=== PATIENT | female | born 1975 | race Caucasian/White ===

== ENCOUNTER → 2020-04-28 10:09 | Outpatient (CLI) | payer OTHER, SELFPAY ==
--- NOTE | ~2020-04-28 | XR_ITS ---
EXAMINATION: XR shoulder RT min 2V DATE: 04/28/2020 10:30 INDICATION: Right shoulder pain. TECHNIQUE: 5 views of right shoulder were obtained. COMPARISON: None. FINDINGS: Bone alignment is normal. No fracture. Joint spaces are well maintained. IMPRESSION: 1. Normal right shoulder. Reviewed, dictated and finalized at location A. NTIFIC DIRECTOR IMPRESSION: 1. Normal right shoulder.
== END ==
PROVIDERS: PCP Internal Medicine; Visit Provider Nurse Practitioner
DX: M25.511 Pain in right shoulder (principal)
CPT/HCPCS: 73030

== ENCOUNTER 2020-06-21 10:00 | Outpatient (RCR) | payer OTHER, SELFPAY ==
--- NOTE | 2020-05-08 17:03 | PTOPEVAL ---
PHYSICAL THERAPY EVALUATION Thank you for referring Jessika Dill to [facility].? Jessika was evaluated for the dx of right shoulder pain. The patient is scheduled to be seen for therapy? 2x/week for 4 weeks. Please review, sign, date and return this plan of care DOMI. I agree with and certify that the following plan of care is medically necessary. Referring Physician Date Attending Provider: Deborah Brownlee NP *PT Outpatient Evaluation Start: 05/08/20 15:36 Freq: Status: Active Protocol: Document 05/08/20 15:37 MLV (Rec: 05/08/20 16:48 MLV [id number]) Assessment Status Evaluation Evaluation Information Problem Diagnosis right shoulder pain Onset 2 months ago (and chronic) Cause no event related Additional Evaluation Detail The patient has had pain at the right shoulder for 10-15 years without any injury. The patient has had increased pain and now has trouble holding her daughter-the arm gives out due to pain. The patient is right hand dominant. The patient has trouble with reaching/driving/self care and sleeps 25% less due to the shoulder. 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 The patient has a 3 year old to care for. Diagnostic Tests X-Rays For This Problem Yes: normal Previous Treatments Previous Treatments For This Problem none since original pain started Pain Assessment Timing of Pain Assessment Timing of Pain Assessment Assessment Pain Scale Pain Scale Used Numeric (1 - 10) Self Report Pain Assessment Right Shoulder(s) Reported Pain Level 5 Pain Description Pressure,Sharp,Tender on Palpation Pain Frequency Chronic Other Pain Description 8 with reach/lift/ADL's Greatest Pain Intensity 10 Pain Aggravating Factors Exercise/Activity,Lifting Pain Score Pain Score 5: Self Report Interventions Used Interventions Used By Clinicians Education Pain Relief Interventions Used By Heat,Ice,Inactivity/Rest, Patient Medication,Position Change Other Alleviating Interventions tylenol frequently Cervical and Lumbar ROM Cervical ROM Reason Not Measured WFL/Left,WFL/Right Cervical Lateral Flexion Left (0-50) 25 Query Text:Act
--- NOTE | 2020-06-07 10:46 | PTOPEVAL ---
PHYSICAL THERAPY RE-EVALUATION Thank you for referring Jessika Dill to [facility].? The patient improving with goals partially met. The patient will benefit from further PT and is scheduled to be seen for therapy? 2 x/week for 2 weeks. Please review, sign, date and return this plan of care DOMI. I agree with and certify that the following plan of care is medically necessary. Referring Physician Date Attending Provider: Deborah Brownlee NP Referring Provider: Deborah Brownlee NP *PT Outpatient Evaluation Start: 05/08/20 15:36 Freq: Status: Active Protocol: Document 06/07/20 10:01 [facility] (Rec: 06/07/20 10:43 [facility] [id number]) Assessment Status Re-evaluation Evaluation Information Problem Diagnosis right shoulder pain Onset 2 months ago (and chronic) Cause no event related Additional Evaluation Detail Patient feels she is about 25% better than at eval with having occasional days with high pain still. The pain is still at the upper traps. The patient is doing her exercises daily and using heat regularly. The patient requires tylenol or ibuprofen about every other day. Patient feels more therapy will help get her pain down further. Pain Assessment Timing of Pain Assessment Timing of Pain Assessment Assessment Pain Scale Pain Scale Used Numeric (1 - 10) Self Report Pain Assessment Right Shoulder(s) Reported Pain Level 4 Pain Description Aching,Tightness Pain Score Pain Score 4: Self Report Interventions Used Interventions Used By Clinicians Electrical Stimulation, Exercise,Heat,Manual Therapy Techniques Pain Relief Interventions Used By Exercise,Heat,Medication Patient Cervical and Lumbar ROM Cervical ROM Reason Not Measured WFL/Left,WFL/Right Cervical Lateral Flexion Left (0-50) 25 Query Text:Active in Degrees Cervical Lateral Flexion Left (0-50) 35 Query Text:Passive in Degrees Upper Extremity Range of Motion General Upper Extremity Range of Motion Gross Upper Extremity Range of Motion shoulder active motion: right Comments flexion 135, abduction 156 degrees (improved but patient requires extensive encouragement to use arm actively) Palpation Assessment Palpation Palpation 5
--- NOTE | 2020-06-21 10:51 | PTOPEVAL ---
PHYSICAL THERAPY DISCHARGE Thank you for referring Jessika Dill to [facility].? The patient has been seen for therapy? 13 visits and goals are partially met/skilled PT no longer needed. DC PT. Please review, sign, date and return this plan of care. I agree with and certify the following plan of care. Referring Physician Date Referring Provider: Deborah Brownlee NP *PT Outpatient Discharge Start: 05/08/20 15:36 Freq: Status: Active Protocol: Document 06/21/20 10:07 [facility] (Rec: 06/21/20 10:50 [facility] [id number]) Therapy Assessment Status Assessment Status Discharge Evaluation Information Problem Diagnosis right shoulder pain Onset 2 months ago (and chronic) Cause no event related Additional Evaluation Detail The patient feels a lot better since eval with improved motion and decreased severity of pain. The pt has no trouble with her HEP and can continue along with heat. Patient plans to follow up with MD regarding remaining symptoms assessment. Pain Assessment Timing of Pain Assessment Timing of Pain Assessment Assessment Pain Scale Pain Scale Used Numeric (1 - 10) Self Report Pain Assessment Right Shoulder(s) Reported Pain Level 2 Pain Description Soreness,Tightness Pain Frequency Acute Pain Aggravating Factors Exercise/Activity,Lifting Pain Behaviors None Pain Score Pain Score 2: Self Report Interventions Used Interventions Used By Clinicians Education,Electrical Stimulation,Heat,Manual Therapy Techniques Pain Relief Interventions Used By Exercise,Heat,Inactivity/Rest Patient Cervical and Lumbar ROM Cervical ROM Cervical Lateral Flexion Right (0-50) 35 Query Text:Active in Degrees Cervical Lateral Flexion Left (0-50) 20 Query Text:Active in Degrees Upper Extremity Range of Motion General Upper Extremity Range of Motion Gross Upper Extremity Range of Motion right shoulder flexion active Comments 145 with stiffness; abduction 150 degrees with tingling at endrange Upper Extremity Muscle Strength Testing General Upper Extremity Strength Reason Not Measured WNL/Left,WNL/Right Palpation Assessment Palpation Palpation 70% decrease in spasms/ tightness at logan. upper traps and levator scap muscles. No
== END 2020-06-21 11:58 | disposition home or self-care (01) ==
LOC: ANHPT 10:00
PROVIDERS: PCP Internal Medicine; Referring Provider Nurse Practitioner; Visit Provider Nurse Practitioner
DX: M25.511 Pain in right shoulder (principal)
CPT/HCPCS: 97014; 97110; 97140; 97161; G0283

== ENCOUNTER → 2020-07-11 08:25 | Outpatient (CLI) | payer OTHER, SELFPAY ==
--- NOTE | ~2020-07-11 | MR_ITS ---
EXAMINATION: MR cervical spine wo con EXAM DATE: 07/11/2020 09:29 INDICATION: Neck pain, bilateral shoulder pain right side worse, cervicalgia. TECHNIQUE: Multi-sequential, multiplanar MR images of the cervical spine were obtained without contra st. Axial T2, axial T2 MERGE sequence. Sagittal T1, T2, T2 fat saturation images also obtained. Th ere is no prior study for comparison. FINDINGS: There is mild reversal of the normal cervical lordosis which may be positional or spasm. T here is mild to moderate loss of the C5-6 disc height, mild at C6-7. The vertebral body and disc heig hts are otherwise well maintained. There is 2 mm anterolisthesis C2 on C3. The vertebral bodies are o therwise aligned. The spinal cord signal intensity and intrinsic morphology is normal. Cervicomedulla ry junction is normal in appearance. There are no suspicious marrow signal abnormalities. Paraspinal soft tissue is unremarkable. Level by level evaluation: C2-C3: Disc does not extend beyond the endplate margin. Uncovertebral joint arthropathy: None. Facet joint arthropathy: Mild bilateral. Neural foraminal stenosis: No stenosis. Central canal stenosis: No stenosis. C3-C4: Disc does not extend beyond the endplate margin. Uncovertebral joint arthropathy: Mild left. Facet joint arthropathy: Mild bilateral. Neural foraminal stenosis: No stenosis. Central canal stenosis: No stenosis. C4-C5: Disc does not extend beyond the endplate margin. Uncovertebral joint arthropathy: Mild left. Facet joint arthropathy: Mild bilateral. Neural foraminal stenosis: No stenosis. Central canal stenosis: No stenosis. C5-C6: There is a minimal diffuse disc bulge. Uncovertebral joint arthropathy: Mild to moderate bilateral. Facet joint arthropathy: Mild bilateral. Neural foraminal stenosis: Mild bilateral. Central canal stenosis: No stenosis. C6-C7: There is a minimal diffuse disc bulge. Uncovertebral joint arthropathy: Mild to moderate left, mild right. Facet joint arthropathy: Mild bilateral. Neural foraminal stenosis: No stenosis. Central canal stenosis: No stenosis. C7-T1: Disc does not extend beyond the endplate margin. Uncovertebral joint arthropathy: None. Facet joint arthropathy: None. Neural foraminal stenosis: No stenosis. Central canal stenosis: No stenosis. IMPRESSION: 1. C5-6 mild to moderate disc disease and uncovertebral joint arthropathy. 2. Otherwise mild cervical spondylosis. Reviewed, dictated and finalized at location A.
== END ==
PROVIDERS: PCP Internal Medicine; Visit Provider Nurse Practitioner
DX: M50.30 Other cervical disc degeneration, unspecified cervical region (principal); M47.892 Other spondylosis, cervical region
CPT/HCPCS: 72141

== ENCOUNTER 2021-09-07 12:45 | Emergency (ER) | payer OTHER, SELFPAY ==
--- NOTE | ~2021-09-07 | XR_ITS ---
EXAMINATION: XR lumbar spine 2-3V DATE: 09/07/2021 13:17 INDICATION: Low back pain. TECHNIQUE: 3 views of lumbar spine were obtained. COMPARISON: None. FINDINGS: There is 3 degrees levocurvature of lumbar spine. Vertebral body heights and intervertebral disc heights are normal. The facet joints are unremarkable. IMPRESSION: 1. No etiology for the patient's symptoms. Reviewed, dictated and finalized at location A.
[2021-09-07 12:50] VITALS: BP 112/82; PULSE 93; RESP 16; TEMP 36.1; O2SAT 100
--- NOTE | 2021-09-07 12:56 | ED.GENADULT ---
HPI - General Adult General Chief complaint: Dizziness Stated complaint: VERTIGO/LOWER BACK PAIN Time Seen by Provider: 09/07/21 12:56 Source: patient, RN notes reviewed and old records reviewed Mode of arrival: ambulatory Limitations: no limitations History of Present Illness HPI narrative: 46-year-old female who presents to [facility] with intermittent vertigo since Friday. Patient reports that she had a Migraine on Friday, she also reports some fluid feeling in her right ear and also some sinus drainage. Patient reports that on she started having some lower back pain with no recent injury . Patient reports that she did fall down steps about a year ago and she did have some injections done in her upper back. Patient admits that she does not drink fluids well with urine dip showing Ketones 1+ in urine and specific gravity 1.025. Related Data Home Medications Medication Instructions Recorded Confirmed [id number]-[id number]-minerals tablet PO DAILY 04/28/20 (Multiple Vitamin, Womens tablet) Allergies Allergy/AdvReac Type Severity Reaction Status Date / Time Sulfa (Sulfonamide Allergy Mild Rash Unverified 12/26/20 08:56 Antibiotics) Cephalosporins Allergy Unknown Rash Unverified 12/26/20 08:56 codeine Allergy Unknown NAUSEA Unverified 12/26/20 08:56 Penicillins Allergy Unknown HIVES Unverified 12/26/20 08:56 prochlorperazine Allergy Unknown SHAKES/TREM Unverified 12/26/20 08:56 ORS Review of Systems Review of Systems: CONSTITUTIONAL: Denies fever, chills, or sweats. EYES: Denies visual changes, redness, or discharge. ENT: Positive for rhinorrhea,no congestion, sore throat, pressure feelings right ear otalgia. CARDIOVASCULAR: Denies chest pain, palpitations, or edema. RESPIRATORY: Denies cough or dyspnea. GASTROINTESTINAL: Denies abdominal pain, nausea, vomiting, or diarrhea. GENITOURINARY: Denies dysuria or hematuria. SKIN: Denies rash or itching. MUSCULOSKELETAL: Positive for lower back pain, joint pain, or myalgia. NEUROLOGIC: Denies headache, numbness, or weakness, states intermittent vertigo PSYCHIATRIC: Denies anxiety or depression. [facility] Past Medical History Medical History (Updated 09/08/21 @ 17:44 by Ana Luisa Archer NP) Allergies Broken finger Fibromyalgia Fractured rib Headache Migraines Shoulder pain Tinnitus Surgical History Surgical History H/O section 2009, 2011, 2017 H/O tubal ligation 2017 History of appendectomy 1984 Family History Family History Father Family history of diabetes mellitus in first degree relative, Onset Age: 64 Patient's father is Pancreatic cancer Grandparent Acute myocardial infarction Heart failure Cirrhosis Social History Social History (Updated 09/08/21 @ 17:45 by Ana Luisa Archer NP) Smoking status: Never smoker Second hand tobacco smoke exposure: No Smoking end date: 03/31/94 Alcohol intake: current Substance use type: does not use Living arrangements: with family Gender identity (if verbalized by the patient): Female Comments At time of signature, agree with nursing past medical, surgical, social and family history. There is no relevant family history pertinent to the presenting complaint Exam Narrative: GENERAL: Well-appearing, well-nourished, and in no acute distress. HEAD: Normocephalic, atraumatic. EYES: PERRLA and EOMI. ENT: Nares with minimal redness, clear rhinorrhea no epistaxis. Mucous membranes moist.TM;s normal with good light reflex, throat pink with no lesions or exudates,no tonsil swelling NECK: Supple. no lymphadenopathy CHEST: Clear to auscultation. No respiratory distress.SAO2 100% on room air. HEART: Regular rate and rhythm. No murmur heard. Normal peripheral pulses. ABDOMEN: Soft, nontender, nondistended, normal active bowel sounds. EXTREMIT
== END 2021-09-07 13:44 | disposition home or self-care (01) ==
PROVIDERS: Emergency Provider Registered Nurse; PCP Internal Medicine
DX: M54.50 Low back pain, unspecified (principal); R42 Dizziness and giddiness; M79.7 Fibromyalgia
CPT/HCPCS: 72100; 81003; 99213; G0463

== ENCOUNTER → 2022-12-10 16:25 | Outpatient (CLI) | payer OTHER, SELFPAY ==
--- NOTE | ~2022-12-10 | XR_ITS ---
EXAMINATION: XR chest 2V 12/10/2022 16:36 INDICATION: Shortness of breath PROCEDURE: 2 view chest COMPARISON: No prior studies for comparison. FINDINGS: The lungs are clear. The cardiomediastinal silhouette is within normal limits. There are no pleural effusions. There is no pneumothorax suspected. IMPRESSION: 1: NO ACUTE CARDIOPULMONARY DISEASE. Reviewed, dictated and finalized at location L.
== END ==
PROVIDERS: PCP Clinical Nurse Specialist; Visit Provider Clinical Nurse Specialist
DX: R06.02 Shortness of breath (principal)
CPT/HCPCS: 71046

== ENCOUNTER 2022-12-29 12:36 | Emergency (ER) | payer OTHER, SELFPAY ==
--- NOTE | ~2022-12-29 | XR_ITS ---
EXAMINATION: [id number] INDICATION: Right chest pain TECHNIQUE: A frontal view of the chest and two views of the right ribs were obtained. COMPARISON: None. FINDINGS: The lungs are free of acute opacities. No pleural effusion or pneumothorax. The cardiomedia stinal silhouette is normal. The visualized bones and soft tissues are unremarkable. No displaced rib fracture is identified. IMPRESSION: 1. No acute cardiopulmonary abnormality or evidence of displaced rib fracture. Reviewed, dictated and finalized at location A.
[2022-12-29 12:42] VITALS: BP 118/74; PULSE 102; RESP 16; TEMP 36.7; O2SAT 100
--- NOTE | 2022-12-29 12:51 | ED.URI ---
HPI - URI/Sore Throat General Chief Complaint: Upper Respiratory Infection Stated Complaint: Bronchitis;Rib pain Time Seen by Provider: 12/29/22 12:51 Source: patient and RN notes reviewed Mode of arrival: ambulatory Limitations: no limitations History of Present Illness HPI Narrative: 47-year-old female presents with concern for rib pain. She reports 1 month history of cough with bronchitis. Reports she has completed a round of doxycycline, Medrol Dosepak, has been using an inhaler and Tessalon Perles. She reports symptoms had improved slightly but she still has a very persistent cough. She reports pain under the right shoulder blade that wraps around the right rib cage under the breast. She reports pain is worsened with deep breathing and coughing. She denies rash, bruising MD elicited complaint: cough Related Data Home Medications Medication Instructions Recorded Confirmed [id number]-Rc-vmcd-minerals 1 tablet PO DAILY 04/28/20 12/29/22 (Multiple Vitamin, Womens tablet) Allergies Allergy/AdvReac Type Severity Reaction Status Date / Time Sulfa (Sulfonamide Allergy Mild Rash Unverified 12/29/22 12:39 Antibiotics) Cephalosporins Allergy Unknown Rash Unverified 12/29/22 12:39 codeine Allergy Unknown NAUSEA Unverified 12/29/22 12:39 Penicillins Allergy Unknown HIVES Unverified 12/29/22 12:39 prochlorperazine Allergy Unknown SHAKES/TREM Unverified 12/29/22 12:39 ORS Review of Systems Review of Systems: CONSTITUTIONAL: Denies malaise, chills, sweats, or fever. EYES: Denies visual changes, redness, or discharge. ENT: Denies rhinorrhea, congestion, sinus pain, otalgia and sore throat. CARDIOVASCULAR: Denies chest pain, palpitations, or edema. RESPIRATORY: Reports cough. Denies dyspnea. GASTROINTESTINAL: Denies abdominal pain, nausea, vomiting, diarrhea SKIN: Denies rash or itching. MUSCULOSKELETAL: Reports right rib pain NEUROLOGIC: Denies headache. All systems reviewed & are unremarkable except as noted in HPI and below PMFSH Past Medical History Medical History Allergies Broken finger Fibromyalgia Fractured rib Headache Migraines Shoulder pain Tinnitus Surgical History Surgical History H/O section 2008, 2012, 2017 H/O tubal ligation 2017 History of appendectomy 1984 Family History Family History Father Family history of diabetes mellitus in first degree relative, Onset Age: 64 Patient's father is Pancreatic cancer Grandparent Acute myocardial infarction Heart failure Cirrhosis Social History Social History (Updated 12/04/22 @ 14:00 by Miles Espino MA) Smoking status: Former smoker Second hand tobacco smoke exposure: No Smoking end date: 03/31/94 Alcohol intake: current Substance use type: does not use Lack of Transportation: No Lack of Food: Never True Current Housing: I Have Housing Concerned About Future Housing: No Difficulty Paying Gas/Electric Bills: No Difficulty Paying for Meds: No Currently Unemployed: No Education: Bachelor's Degree Difficulty w/ Childcare or Family Care: No Living arrangements: with family Gender identity (if verbalized by the patient): Female Comments At time of signature, agree with nursing past medical, surgical, social and family history. There is no relevant family history pertinent to the presenting complaint Exam Narrative: GENERAL: Well-appearing, well-nourished, and in no acute distress. HEAD: Normocephalic EYES: PERRLA, conjunctivae clear ENT: Nares clear. Mucous membranes moist. TM pearly cheng with dull light reflex bilaterally; no tragal tenderness. NECK: Supple. No lymphadenopathy CHEST: Clear to auscultation, breath sounds equal. No wheezing, rhonchi, rales, or stridor.
[2022-12-29 13:06] VITALS: BP 118/74; PULSE 102; RESP 16; TEMP 36.7; O2SAT 100
== END 2022-12-29 13:31 | disposition home or self-care (01) ==
PROVIDERS: Emergency Provider Nurse Practitioner; PCP Clinical Nurse Specialist
DX: R05.9 Cough, unspecified (principal); R07.81 Pleurodynia; Z87.891 Personal history of nicotine dependence
CPT/HCPCS: 71101; 99213; G0463

== ENCOUNTER 2023-11-25 14:49 | Outpatient (CLI) | payer OTHER, SELFPAY ==
[2023-11-25 18:51] LABS: Basophils Absolute Auto 0.1 K/mm3 (0.0-0.1); Basophils Percent Auto 0.5 % (0.2-1.2); Eosinophils Absolute Auto 0.1 K/mm3 (0-0.3); Eosinophils Percent Auto 0.9 % (0-4.4); Hematocrit 40.7 % (37.0-47.0); Hemoglobin 13.2 g/dL (12.0-15.0); Immature Granulocyte Absolute 0.02 K/mm3 (0.00-0.031); Immature Granulocyte Percent A 0.2 % (0-0.5); Lymphocytes Absolute Auto 3.78 K/mm3 (0.9-3.2); Lymphocytes Percent Auto 39.6 % (18.3-44.2); Mean Corpuscular HGB Conc 32.4 g/dl (32-36); Mean Corpuscular Hemoglobin 28.8 pg (26-34); Mean Corpuscular Volume 88.7 fl (80-100); Mean Platelet Volume 10.6 fl (7.4-10.4); Monocytes Absolute Auto 0.7 K/mm3 (0.1-0.6); Monocytes Percent Auto 7.2 % (2.6-8.5); Neutrophils Absolute Auto 4.9 K/mm3 (1.3-6.7); Neutrophils Percent Auto 51.6 % (45.5-73.1); Platelet Count Result 339 k/mm3 (150-375); Red Blood Count 4.59 M/mm3 (4.2-5.4); White Blood Count 9.5 K/mm3 (4.5-10.0)
[2023-11-25 19:38] LABS: Alanine Aminotransferase 12 U/L (6-35); Albumin Level 4.2 g/dL (3.5-5.1); Alkaline Phosphatase 58 U/L (38-126); Anion Gap 9 mmol/L (4-12); Aspartate Amino Transferase 40 U/L (14-36); Bilirubin,Total 0.2 mg/dL (0.2-1.3); Blood Urea Nitrogen 10 mg/dL (7-17); Calcium 8.8 mg/dL (8.4-10.2); Carbon Dioxide 29 mmol/L (22-30); Chloride 102 mmol/L (98-107); Estimated Glomerular Filt Rate > 60; Glucose 104 mg/dL (65-110); Potassium 3.5 mmol/L (3.4-5.0); Sodium 140 mmol/L (137-145)
== END 2023-11-25 14:50 | disposition home or self-care (01) ==
LOC: ANHGOSHLAB 14:50
PROVIDERS: PCP Nurse Practitioner; Visit Provider Nurse Practitioner
DX: Z13.29 Encounter for screening for other suspected endocrine disorder (principal); R53.83 Other fatigue
CPT/HCPCS: 36415; 80053; 84443; 85025

== ENCOUNTER 2024-02-17 09:25 | Outpatient (CLI) | payer OTHER, SELFPAY ==
[2024-03-08 12:09] VITALS: BMI 26.4
--- NOTE | 2024-03-08 12:09 | WPDHOMESLEEP ---
Sleep Study - Home Unattended Date of Study: 02/17/24 Ordering Provider: Deborah Brownlee NP Interpreting Provider: Perla Dukes, DO Home Sleep Study Type: Watch PAT Height: 1.52 m Weight: 61.235 kg Body Mass Index: 26.4 Neck Circumference (inches): 13 [place]: 14 Reason for Sleep Study Excessive daytime sleepiness Sleep History The patient is a 48-year-old female that had a sleep study ordered by her primary care for evaluation of sleep apnea. The patient denies awakening from sleep short of breath. She rarely awakens at night with heartburn, belching or cough. She rarely snores and is never loud enough that others complain. She rarely has trouble sleeping when she has a cold. She denies waking up gasping for air throughout the night. She denies having breathing problems at night observed by herself or others. She denies sweating excessively at night. She rarely has heart palpitations or irregular heartbeats during the night. She occasionally falls asleep during the day but never while driving. She rarely experiences loss of muscle tone when extremely emotional. She occasionally has trouble at school or work due to sleepiness. She rarely feels unable to move while waking up or falling asleep. She rarely experiences vivid dreamlike scenes upon awakening or falling asleep. She rarely feels afraid of going to sleep. She occasionally has nightmares and occasionally remembers her dreams. She constantly has thoughts racing through her mind. She rarely feels sad, depressed or anxious. She frequently has muscular tension. She occasionally notices parts of her body jerk. She frequently kicks during the night. She occasionally has crawling and aching feelings in her legs and occasionally has leg pain during the night. She rarely grinds her teeth during sleep and rarely awakens with morning jaw pain. She is constantly bothered by pain during the day and occasionally awakened by pain during the night. She constantly wakes up feeling stiff in the morning. She constantly wakes up with sore or achy muscles. She constantly wakes up with pain in the neck, spine and other joints. She goes to bed at 10:00 p.m. on weekdays and between 10-11 p.m. on the weekends. It takes her 30-90 minutes to fall asleep. She wakes up very frequently throughout the night for unknown reasons and it can take to get 30 minutes to fall back asleep. She wakes up between 6:37 a.m. on weekdays and between 8-9 a.m. on the weekends. She is unsure how many hours of sleep she gets per night but she is in bed for 6-7 hours. She will stay in bed for 10-30 minutes after waking up in the morning. She currently lives with her and 3 children. She is denies engaging in physical exercise before bedtime. She will watch television before falling asleep. She will take naps in the afternoon or the evening but they are not refreshing. She consumes 2 caffeinated beverages per day. She denies tobacco, alcohol and recreational drug use. [facility]LY [facility] Past Medical History Medical History Allergies Broken finger Fibromyalgia Fractured rib Headache Migraines Shoulder pain Tinnitus Surgical History Surgical History H/O section 2008, 2011, 2017 H/O tubal ligation 2017 History of appendectomy 1983 Family History Family History Father Family history of diabetes mellitus in first degree relative, Onset Age: 64 Patient's father is Pancreatic cancer Grandparent Acute myocardial infarction Heart failure Cirrhosis Social History Social History Smoking status: Former smoker Second hand tobacco smoke exposure: No Smoking end date: 03/31/94 Alcohol intake: current Substance use type: does not use Lack of Transportation: No Lack of Food: Never True Current Housing: I Have Housing Concerned About Future Housing: No Difficulty Paying Gas/Electric Bills: No Difficulty Paying for Meds: No Currently Unemployed: No Education: Bachelor's Degree Difficulty w/ Childcare or Family Care: No Living arrangements: with family Gender identity (if verbalized by the patient): Female Medications Home Medications Medication Instructions Recorded Confirmed Type luqprcuppvvn-Ln-xpsb-minerals 1 tablet PO DAILY 04/28/20 11/25/23 History (Multiple Vitamin, Womens tablet) albuterol sulfate 90 mcg/actuation 1 puff inhalation Q4H PRN 12/04/22 11/25/23 Rx aerosol inhaler shortness of breath or wheezing #8.5 grams Sleep Procedure The sleep study was completed using [employer] a technically adequate device with seven channels: peripheral arterial tone, actigraphy, body position, snore, respiratory movement, pulse oximetry, sleep staging, and heart rate. Prior to using the device, the patient received verbal and written instructions for its application and was provided with the help desk phone number for additional telephonic instruction with 24-hour availability of qualified personnel to answer questions. The study was scored using CMS guidelines. Sleep Architecture The total recording time is 8 hrs, 50 min. The total sleep time is 7 hrs, 42 min. Sleep latency is 17 minutes. REM latency is 28 minutes. The patient had 11 episodes of waking. Sleep architecture shows 21.7% deep sleep, 46.9% light sleep, and (as % Total Sleep Time) showed NREM (Light 46.9%; Deep 21.7%), and a 31.4% stage REM. The patient spent 52.7% of total sleep time in the supine position. Sleep efficiency was 87.17. Respiratory Analysis The overall AHI (pAHI 4%:) is 1.3. The central AHI is 0.8. The AHI was 0.6 in NREM and 2.9 in REM sleep. The AHI was 1.2 in Supine and 0.9 in Non-supine sleep. Percent of Jose Barker respirations is 0.0. Oximetry Data The oxygen desaturation index (INDRA 4%:) is 1.3. The mean saturation is 96%, and the lowest saturation is 88%. Time spent with saturation < 88% is 0.0 minutes. Snoring Profile Snoring average intensity is 40 dB. The patient snored above 45 decibels for 4.4 minutes, 1.0% of sleep time. Cardiac Profile The average pulse rate is 69 beats per minutes. The lowest pulse rate is 50 bpm. The highest pulse rate reported is 140 bpm. Atrial fibrillation was not detected. Premature beats occur <0.1 per minute. Assessment and Plan Assessment and Plan (1) Hypersomnia: Code(s): G47.10 - Hypersomnia, unspecified Status: Acute Assessment and Plan: The patient had an overall AHI of 1.3 with desaturation down to 88%. This is not consistent with sleep disordered breathing. Due to the patient's excessive daytime sleepiness, further evaluation is warranted. I recommend that the patient have a split study with the use of a hypnotic (Lunesta 2-3 mg or Ambien 5-10 mg) to ensure we obtain enough sleep data. The patient's sleep history is suggestive of Restless Leg Syndrome. I recommend that the patient have a serum ferritin drawn for evaluation of iron deficiency anemia. If the patient has a serum ferritin less than 75 ng/mL, I recommend starting a daily iron supplement and a Vitamin C supplement for better absorption. If the serum ferritin is greater than 75 ng/mL, I recommend starting a dopamine agonist and titrating the dose until symptoms resolve. There are nonpharmacological methods to treat limb movements including daily exercise, stretching calf muscles before bed, avoiding excessive amounts of caffeine and alcohol, vitamin B supplementation, magnesium lotion massaged into legs before bed, and use of a weighted blanket. Data The data obtained during this sleep study is adequate for interpretation. Certification This sleep study has been reviewed by a board certified sleep medicine physician.
== END 2024-02-18 11:45 | disposition home or self-care (01) ==
LOC: ANHCSM 09:29
PROVIDERS: PCP Nurse Practitioner; Visit Provider Nurse Practitioner
DX: G47.10 Hypersomnia, unspecified (principal)
CPT/HCPCS: 95800

== ENCOUNTER 2024-03-09 12:40 | Outpatient (CLI) | payer OTHER, SELFPAY | END 2024-03-09 12:41 | disposition home or self-care (01) | LOC: ANHGOSHLAB 12:42 | PROVIDERS: PCP Nurse Practitioner; Visit Provider Nurse Practitioner | DX: G25.81 Restless legs syndrome (principal) | CPT/HCPCS: 36415; 82728 ==

== ENCOUNTER 2024-03-15 10:56 | Outpatient (CLI) | payer OTHER, SELFPAY ==
--- OUTSIDE RECORDS SUMMARY | 2024-03-23 11:06 | XMS_ITS | Clinical Summary ---
Author Organization [facility] Address [address] [place] [address] Care Team Providers Care Mri Technologist Name Role Phone Darius Schuler DO Primary Care Provider [phone] Source Comments [facility],non-owned Affiliates and Associated Physician Practices is amultiple site organization consisting of ambulatory clinics and hospital sitesin [place], [place] and [place]. This disclosure is being madepursuant to the Care Everywhere program and may not contain all information available regarding this patient. Last updated 17.[facility] Allergies Active Allergy Reactions Criticality Noted Date Comments Cephalosporins Urticaria,Rash Medium 06/28/2016 Codeine Nausea and/or Vomiting 06/28/2016 Prochlorperazine Nausea and/or Vomiting 017 Penicillins Urticaria,Rash Medium 06/28/2016 Sulfamethazine Urticaria Medium 06/28/2016 Medications * Be aware that medications may not be up to date on this document. Alwaysverify current medications with the patient. Medication Sig Dispensed Refills Start Date End Date Status azithromycin (ZITHROMAX) 250 MG tabletIndications:Stre p throat Take 2 tabs today, then 1 tab daily for next 4 days 6 tablet 09/19/2018 Active Active Problems Problem Noted Date Diagnosed Date History of gestational diabetes 04/02/2017 Social History Tobacco Use Types Packs/Day Years Used Date Smoking Tobacco: Never Smokeless Tobacco: Never Sex and Gender Information Value Date Recorded Sex Assigned at Not on file Gender Identity Not on file Sexual Orientation Not on file Last Filed Vital Signs Vital Sign Reading Time Taken Comments Blood Pressure 106/70 09/19/2018 10:38 AM CDT Pulse 93 09/19/2018 10:38 AM CDT Temperature 37.5 ??C (99.5 ??F) 09/19/2018 10:38 AM C DT Respiratory Rate 17 09/19/2018 10:38 AM CDT Oxygen Saturation 99% 09/19/2018 10:38 AM CDT Inhaled Oxygen Concentration - - Weight 59 kg (130 lb) 09/19/2018 10:38 AM CDT Height 152.4 cm (5') 09/19/2018 10:38 AM CDT Body Mass Index 25.39 09/19/2018 10:38 AM CDT Plan of Treatment Health Maintenance Due Date Last Done Comments COLOGUARD (AGES 45-75) - COL ON CA SCREENING 1976 COLON MONITORING 1976 COLONOSCOPY - COLON CA SCREENING 1976 CT COLONOGRAPHY - COLON CA SCREENING 1976 Colorectal Cancer Screening 1976 FIT - COLON CA SCREENING 1976 FLEX SIG - COLON CA SCREENING 1976 LIPID TESTING 1976 MAMMOGRAM 1976 PAP SMEAR 1976 HIV SCREENING 1991 HEPATITIS C SCREENING 05/24/1994 DTAP/TDAP/TD VACCINES (1 - Tdap) 1995 HEPATITIS B VACCINE (1 of 3 - 19+ 3-dose series) 1995 SCREENING FOR DIABETES 09/19/2018 DEPRESSION SCREENING 03/31/2023 COVID-19 VACCINE (1 - 2023-2 5 season) 2023 INFLUENZA VACCINE (#1) 2023 12/16/2016 ZOSTER VACCINE (1 of 2) 2026 HIB VACCINE Aged Out No longer eligi ble based on patient's age to complete this topic HPV VACCINE Aged Out No longer eligi ble based on patient's age to complete this topic MENINGOCOCCAL VACCINE Aged Out No tatiana cristobal eligible based on patient's age to complete this topic PNEUMOCOCCAL VACCINE Aged Out No long er eligible based on patient's age to complete this topic Care Teams Mri Technologist Relationship Specialty Start Date End Date Darius Schuler DO PCP - General Internal Medicine 06/28/16
--- OUTSIDE RECORDS SUMMARY | 2024-03-23 11:06 | XMS_ITS | Patient Health Summary ---
Author Organization [facility] Address [address] [place] [address] Care Team Providers Care Glove Operator Name Role Phone Darius Schuler DO Primary Care Provider [phone] Note from [facility],non-owned Affiliates and Associated Physician Practices is amultiple site organization consisting of ambulatory clinics and hospital sitesin [place], [place], [place] and [place]. This disclosure is being madepursuant to the Care Everywhere program and may not contain all information available regarding this patient. Last updated 17.[facility] Allergies * Cephalosporins(Urticaria,Rash) -Medium Criticality * Codeine(Nausea and/or Vomiting) * Prochlorperazine(Nausea and/or Vomiting) * Penicillins(Urticaria,Rash) -Medium Criticality * Sulfamethazine(Urticaria) -Medium Criticality Medications * Be aware that medications may not be up to date on this document. Alwaysverify current medications with the patient. * azithromycin (ZITHROMAX) 250 MG tablet(Started 09/19/2018) Take 2 tabs today, then 1 tab daily for next 4 days Active Problems Problem Noted Date Diagnosed Date [...] Mass Index 25.39 09/19/2018 10:38 AM CDT Procedures * STREP A SCREEN - POINT OF CARE (AMB) STL(Performed 09/19/2018) Performed for Strep throat Results * (ABNORMAL) STREP A SCREEN - POINT OF CARE (AMB) STL (09/19/2018) Strep A Rapid POCT Positive(A) Negative Strep A Internal Control Present Lot # [id number] Expiration Date 03/30/20 Throat ENTIRE THROAT (SURFACE REGION OF NECK) / Unknown 09/19/2018 Andres Soriano OPERATING ROOM AIDE-SENIOR POWER SCHEDULER LAB - POINT OF CARE ORDERABLES Care Teams Glove Operator Relationship Specialty Start Date End Date Darius Schuler DO PCP - General Internal Medicine 06/28/16
--- OUTSIDE RECORDS SUMMARY | 2024-03-23 11:06 | XMS_ITS | Referral Summary ---
Author Organization [facility] Address [address] [place] [address] Care Team Providers Care Director Craft Center Name Role Phone Darius Schuler DO Primary Care Provider Source Comments [facility],non-owned Affiliates and Associated Physician Practices is amultiple site organization consisting of ambulatory clinics and hospital sitesin [place], [place], [place] and [place]. This disclosure is being madepursuant to the Care Everywhere program and may not contain all information available regarding this patient. Last updated 17.[facility] Allergies Active Allergy Reactions Criticality Noted Date [...] 09/19/2018 10:38 AM CDT Plan of Treatment Not on file Care Teams Director Craft Center Relationship Specialty Start Date End Date Darius Schuler DO PCP - General Internal Medicine 06/28/16
--- OUTSIDE RECORDS SUMMARY | 2024-03-23 11:07 | XMS_ITS | Clinical Summary ---
Author Organization [facility] Care Team Providers Care Vial Gauger Name Role Phone Unavailable Primary Care Provider Unavailabl e Social History Tobacco Use Types Packs/Day Years Used Date Smoking Tobacco: Never Assessed Comments Unknown Sex and Gender Information Value Date Recorded Sex Assigned at Not on file Legal Sex Female 10:58 AM ENTRY LEVEL DRAFTER Gender Identity Not on file Sexual Orientation Not on file Plan of Treatment Health Maintenance Due Date Last Done Comments Hepatitis C Virus (HCV) Screening 1976 TdaP Immunization 1976 Hepatitis B Immunization (1 of 3 - 19+ 3-dose series) 1995 Pap Smear 1997 Cervical Cancer Screening (CCS) 2006 HPV/Cotest 2006 Discussion re Starting/Frequ ency of Mammograms 2016 Colonoscopy 2021 Colorectal Cancer Screening 2021 SARS-COV-2 Immunization ( season) 2022 Influenza Immunization (Seas on Ended) 2023 01/21/2020 Meningococcal Immunization (ACWY) Aged Out No longer eligible based on patient's age to complete this topic Pneumococcal Immunization Combined Aged Out No longer eligible based on patient's age to complete this topic Rotavirus Immunization Aged Out No lo nger eligible based on patient's age to complete this topic
--- OUTSIDE RECORDS SUMMARY | 2024-03-23 11:07 | XMS_ITS | Encounter Summary ---
Author Organization [facility] Address [address] [place] [address] Care Team Providers Care Social Work Msw Name Role Phone Darius Schuler DO Primary Care Provider [phone] Reason for Visit * Reason Comments Cough persistent for 2-3 w eeks Encounter Details Date Type Department Care Team (Late st Contact Info) Description 06/28/2016 10:00 AM CDT Office Visit [facility] AT [address] [id number] [facility] Acute maxillary sinusitis, recurrence not specified (Primary Dx) Social History Tobacco Use Types Packs/Day Years Used Date Smoking Tobacco: Never Sex and Gender Information Value Date Recorded Sex Assigned at Not on file Gender Identity Not on file Sexual Orientation Not on file documented as of this encounter Last Filed Vital Signs Vital Sign Reading Time Taken Comments Blood Pressure 118/76 06/28/2016 10:04 AM CDT Pulse 83 06/28/2016 10:04 AM CDT Temperature 36.8 ??C (98.3 ??F) 06/28/2016 10:04 AM C DT Respiratory Rate 16 06/28/2016 10:04 AM CDT Oxygen Saturation 98% 06/28/2016 10:04 AM CDT Inhaled Oxygen Concentration - - Weight 59.9 kg (132 lb) 06/28/2016 10:04 AM CDT Height 152.4 cm (5') 06/28/2016 10:04 AM CDT Body Mass Index 25.78 06/28/2016 10:04 AM CDT documented in this encounter Patient Instructions * Patient Instructions* Bryant Rdz APRN-JJ - 06/28/2016 10:18 AM CDT Drink plenty of fluids Get plenty of rest Cool mist humidifier Elevate head of bed Tylenol or Ibuprofen per package direction for discomfort\fever (if not allergic) documented in this encounter Progress Notes * Bryant Rdz APRN-CNP - 06/28/2016 10:17 AM CDT Subjective: Jessika Dill is a 41 y.o. female who presents for evaluation of sore throat, congestion, non productive cough. her PCP is Darius Schuler DO. She states the Onset was: 3 weeks and course is gradually worsening. She is drinking plenty of fluids.. Past History of no history of pneumonia or bronchitis. She myesha non-smoker. Past Medical History Diagnosis Date ??? NEGATIVE PAST MEDICAL HISTORY - SEE PROBLEM LIST No family history on file. Current Outpatient Prescriptions Medication Sig Dispense Refill ??? doxycycline (VIBRAMYCIN) 100 MG capsule Take 1 Cap by mouth 2 times daily for 10 days 20 Cap 0 No current facility-administered medications for this visit. Allergies Allergen Reactions ??? Cephalosporins Urticaria and Rash ??? Pcn [Penicillins] Urticaria and Rash ??? Codiene [Codeine] Nausea and/or Vomiting ??? Compazine [Prochlorperazine] Nausea and/or Vomiting ??? Sulphadimidine [Sulfamethazine] Urticaria History Social History ??? Marital status: Spouse name: N/A ??? Number of children: N/A ??? Years of education: N/A Occupational History ??? Not on file. Social History Main Topics ??? Smoking status: Never Smoker ??? Smokeless tobacco: Not on file ??? Alcohol use: Not on file ??? Drug use: Not on file ??? Sexual activity: Not on file Other Topics Concern ??? Not on file Social History Narrative ??? No narrative on file Review of Systems Pertinent items are noted in HPI Objective: BP 118/76 (BP SITE: LEFT ARM, BP POSITION: SITTING, BP CUFF SIZE: Adult) Pulse 83 Temp 98.3 ??F (Oral) Resp 16 Ht 1.524 m (5') Wt 59.9 kg (132 lb) SpO2 98% BMI 25.78 kg/m2 General appearance: alert, cooperative, no distress Ears: canals clear, tympanic membranes normal, hearing intact to voice Nose: mucosa erythematous and swollen, purulent rhinorrhea, maxillary tenderness bilaterally Throat: no mucous membrane abnormalities Lungs: breath sounds normal and symmetric; no rales or wheezes Heart: regular rhythm, normal S1 and S2, without murmurs, gallops or rubs Assessment: Encounter Diagnosis Name Primary? Acute maxillary sinusitis, recurrence not specified Yes Plan: 1. Follow up in 3 days or return if symptoms worsen or persist. 2. See orders below 3. Order placed for referral to PCP if none on file Drink plenty of fluids Get plenty of rest Cool mist humidifier Elevate head of bed Tylenol or Ibuprofen per package direction for discomfort\fever (if not allergic) Orders Placed This Encounter ??? doxycycline (VIBRAMYCIN) 100 MG capsule Sig: Take 1 Cap by mouth 2 times daily for 10 days Dispense: 20 Cap Refill: 0 No results found for this or any previous visit (from the past 24 hour(s)). documented in this encounter Plan of Treatment Not on file documented as of this encounter Visit Diagnoses Diagnosis Acute maxillary sinusitis, recurrence not specified- Primary documented in this encounter Care Teams Social Work Msw Relationship Specialty Start Date End Date Darius Schuler DO PCP - General Internal Medicine 06/28/16 documented as of this encounter
--- OUTSIDE RECORDS SUMMARY | 2024-03-23 11:07 | XMS_ITS | Encounter Summary ---
Author Organization [facility] Address [address] [place] [address] Care Team Providers Care Tester/Lift Trucker Name Role Phone Darius Schuler DO Primary Care Provider [phone] Reason for Visit * Reason Onset Date Comments Follow-up 06/30/2016 Encounter Details Date Type Department Care Team (Late st Contact Info) Description 06/30/2016 Telephone [facility] [employer] [facility] [address] [phone] Ivania Dillon Follow-up Social History Tobacco Use Types Packs/Day Years Used Date Smoking Tobacco: Never Sex and Gender Information Value Date Recorded Sex Assigned at Not on file Gender Identity Not on file Sexual Orientation Not on file documented as of this encounter Plan of Treatment Not on file documented as of this encounter Visit Diagnoses Not on filedocumented in this encounter Care Teams Tester/Lift Trucker Relationship Specialty Start Date End Date Darius Schuler DO PCP - General Internal Medicine 06/28/16 documented as of this encounter
--- OUTSIDE RECORDS SUMMARY | 2024-03-23 11:07 | XMS_ITS | Encounter Summary ---
Author Organization [facility] Address [address] [place] [address] Care Team Providers Care Industry Analyst Name Role Phone Unavailable Primary Care Provider Unavailabl e Encounter Details Date Type Department Care Team (Late st Contact Info) Description 03/28/2020 11:30 AM INSTRUMENT ENGINEER Rapid Evaluation [place] [facility] [address] [place] [address] Social History Tobacco Use Types Packs/Day Years Used Date Smoking Tobacco: Never Assessed Comments Unknown Sex and Gender Information Value Date Recorded Sex Assigned at Not on file Legal Sex Female 10:58 AM INSTRUMENT ENGINEER Gender Identity Not on file Sexual Orientation Not on file documented as of this encounter Plan of Treatment Not on file documented as of this encounter Visit Diagnoses Not on filedocumented in this encounter
--- OUTSIDE RECORDS SUMMARY | 2024-03-23 11:07 | XMS_ITS | Encounter Summary ---
Author Organization [facility] Address [address] [place] [address] Care Team Providers Care Bottom Crane Operator Name Role Phone Darius Schuler DO Primary Care Provider [phone] Reason for Visit * Reason Onset Date Comments Follow-up 09/21/2018 Encounter Details Date Type Department Care Team (Late st Contact Info) Description 09/21/2018 Telephone [facility] [employer] [facility] AT [address] [phone] Provider, [facility] Follow-up Social History Tobacco Use Types Packs/Day Years Used Date Smoking Tobacco: Never Smokeless Tobacco: Never Sex and Gender Information Value Date Recorded Sex Assigned at Not on file Gender Identity Not on file Sexual Orientation Not on file documented as of this encounter Miscellaneous Notes * Telephone Encounter - Gogo Briones - 09/21/2018 2:14 PM CDT Courtesy follow-up phone call made to patient. Message left advising patient to call service [facility] [phone] if they have any questions or concerns. Gogo Briones 09/21/2018 2:16 PM documented in this encounter Plan of Treatment Not on file documented as of this encounter Visit Diagnoses Not on filedocumented in this encounter Care Teams Bottom Crane Operator Relationship Specialty Start Date End Date Darius Schuler DO PCP - General Internal Medicine 06/28/16 documented as of this encounter
--- OUTSIDE RECORDS SUMMARY | 2024-03-23 11:07 | XMS_ITS | Encounter Summary ---
Author Organization [facility] Address [address] [place] [address] Care Team Providers Care Cloth Bleaching Range Operator Chief Name Role Phone Darius Schuler DO Primary Care Provider [phone] Reason for Visit * Reason Comments Sore Throat Ear Pain Congestion Cough Encounter Details Date Type Department Care Team (Late st Contact Info) Description 09/19/2018 10:40 AM CDT Office Visit [facility] AT [address] [phone] Provider, Shakira Exp [place] Strep throat (Primary Dx) Social History Tobacco Use Types [...] Mass Index 25.39 09/19/2018 10:38 AM CDT documented in this encounter Patient Instructions * Patient Instructions* Andres Soriano APRN-AVIATION TECHNICAL SYSTEMS SPECIALIST - 09/19/2018 10:50 AM CDT Strep Throat WHAT YOU NEED TO KNOW: What is strep throat? Strep throat is a throat infection caused by bacteria. It is easily spread from person to person. What are the signs and symptoms of strep throat? ?? Sore, red, and swollen throat ?? Fever and headache ?? Upset stomach, abdominal pain, or vomiting ?? White or yellow patches or blisters in the back of your throat ?? Tender, swollen lumps on the sides of your neck or jaw ?? Throat pain when you swallow How is strep throat diagnosed? Your healthcare provider will swab the back of your throat to test for strep bacteria. You may get the results in minutes or the swab may be sent to a lab for further tests. How is strep throat treated? You will need antibiotic medicine to treat your strep throat. You should feel better within 2 to 3 days after you start antibiotics. You may return to work or school 24 hours after you start antibiotics. How can I manage my symptoms? ?? Use lozenges, ice, soft foods, or popsicles to soothe your throat. ?? Drink juice, milk shakes, or soup if your throat is too sore to eat solid food. Drinking liquidscan also help prevent dehydration. ?? Gargle with salt water. Mix ?? teaspoon salt in a 1 cup of warm water and gargle. This may help reduce swelling in your throat. ?? Do not smoke. Nicotine and other chemicals in cigarettes and cigars can cause lung damage and make your symptoms worse. Ask your healthcare provider for information if you currently smoke and needhelp to quit. E-cigarettes or smokeless tobacco still contain nicotine. Talk to your healthcare provider before you use these products. How do I prevent the spread of strep throat? ?? Wash your hands often. Use soap and water. Wash your hands after you use the bathroom, change a child's diapers, or sneeze. Wash your hands before you prepare or eat food. ?? Do not share food or drinks. Replace your toothbrush after you have taken antibiotics for 24 hours. Call 911 for any of the following: ?? You have trouble breathing. When should I seek immediate care? ?? You have new symptoms like a bad headache, stiff neck, chest pain, or vomiting. ?? You are drooling because you cannot swallow your spit. When should I contact my healthcare provider? ?? You have a fever. ?? You have a rash or ear pain. ?? You have green, yellow-brown, or bloody mucus when you cough or blow your nose. ?? You are unable to drink anything. ?? You have questions or concerns about your condition or care. CARE AGREEMENT: You have the right to help plan your care. Learn about your health condition and how it may be treated. Discuss treatment options with your healthcare providers to decide what care you want to receive. You always have the right to refuse treatment. The above information is an case work aide only. It is not intended as medical advice for individual conditions or treatments. Talk to your doctor, nurse or pharmacist before following any medical regimen to see if it is safe and effective for you. ?? Copyright [employer] 2019 Information is for End User's use only and may not be sold, redistributed or otherwise used for commercial purposes. All illustrations and images included in CareNotes?? are the copyrighted property of [employer], [employer]. or [employer] documented in this encounter Progress Notes * Andres Soriano APRN-CNP - 09/19/2018 10:37 AM CDT [facility] [place] Jessika Dill is a 43 year old female who presents for evaluation: Chief Complaint Patient presents with ??? Sore Throat ??? Ear Pain ??? Congestion ??? Cough Primary Care Physician is Darius Schuler DO. SUBJECTIVE: General The history is provided by the patient (43 y/o f). This is a new problem. The current episode started more than 2 days ago. The problem occurs constantly. The problem has been gradually worsening. The pain is moderate. Body Location: sore throat, ear pain congestion, min cough Pertinent negatives include no shortness of breath. The symptoms are aggravated by swallowing. The symptoms are relieved by Tylenol (zyrtec, ). The treatment provided mild relief. Past Medical History: Diagnosis Date ??? NEGATIVE PAST MEDICAL HISTORY - SEE PROBLEM LIST No current outpatient prescriptions on file prior to visit. No current facility-administered medications on file prior to visit. Past Surgical History: Procedure Laterality Date ??? Appendectomy ??? Section ??? LAPAROSCOPY Social History Social History ??? Marital status: Spouse name: N/A ??? Number of children: N/A ??? Years of education: N/A Occupational History ??? Not on file. Social History Main Topics ??? Smoking status: Never Smoker ??? Smokeless tobacco: Never Used ??? Alcohol use Not on file ??? Drug use: Not on file ??? Sexual activity: Not on file Other Topics Concern ??? Not on file Social History Narrative No family history on file. Current Outpatient Prescriptions Medication Sig Dispense Refill ??? azithromycin (ZITHROMAX) 250 MG tablet Take 2 tabs today, then 1 tab daily for next 4 days 6 tablet 0 No current facility-administered medications for this visit. Allergies Allergen Reactions ??? Cephalosporins Urticaria and Rash ??? Pcn [Penicillins] Urticaria and Rash ??? Codiene [Codeine] Nausea and/or Vomiting ??? Compazine [Prochlorperazine] Nausea and/or Vomiting ??? Sulphadimidine [Sulfamethazine] Urticaria REVIEW OF SYSTEMS: Review of Systems Constitutional: Positive for malaise/fatigue. Negative for chills and fever. HENT: Positive for congestion, ear pain and sore throat. Negative for sinus pain. Respiratory: Positive for cough. Negative for hemoptysis, sputum production, shortness of breath and wheezing. Cardiovascular: Negative. Gastrointestinal: Negative. Musculoskeletal: Negative. OBJECTIVE: General appearance: alert, well appearing, and in no distress. BP 106/70 (BP SITE: RIGHT ARM, BP POSITION: SITTING, BP CUFF SIZE: 11) Pulse 93 Temp 99.5 ??F (37.5??C) (Oral) Resp 17 Ht 1.524 m (5') Wt 59 kg (130 lb) SpO2 99% BMI 25.39 kg/m2 Physical Exam Constitutional: She is well-developed, well-nourished, and in no distress. HENT: Nares and tm's mild erythema, edema, Bulging tm With fluid Posterior buccal mucosa moderate erythema, edema, No exudate; +1 tonsils Neck: Normal range of motion. Neck supple. Small and tender Cardiovascular: Normal rate and regular rhythm. Pulmonary/Chest: Effort normal and breath sounds normal. No respiratory distress. She has no wheezes. She has no rales. She exhibits no tenderness. Recent Results (from the past 24 hour(s)) STREP A SCREEN - POINT OF CARE (AMB) STL Collection Time: 09/19/18 12:00 AM Result Value Ref Range Strep A Rapid POCT Positive (Abnormal) Negative Strep A Internal Control Present Lot # [id number] Expiration Date 03/30/20 ASSESSMENT: Encounter Diagnosis Name Primary? Strep throat Yes PLAN: Orders Placed This Encounter ??? STREP A SCREEN - POINT OF CARE (AMB) STL ??? azithromycin (ZITHROMAX) 250 MG tablet Sig: Take 2 tabs today, then 1 tab daily for next 4 days Dispense: 6 tablet Refill: 0 Handout given Pt stated elena worked best in the past for this w/o adverse reaction documented in this encounter Plan of Treatment Not on file documented as of this encounter Procedures Procedure Name Priority Date/Time Associated Diagnosis Comments STREP A SCREEN - POINT OF CARE (AMB) STL Routine 09/19/2018 Strep throat documented in this encounter Results * (ABNORMAL) STREP A SCREEN - POINT OF CARE (AMB) STL (09/19/2018) Strep A Rapid POCT Positive(A) Negative Strep A Internal Control Present Lot # [id number] Expiration Date 03/30/20 Throat ENTIRE THROAT (SURFACE REGION OF NECK) / Unknown 09/19/2018 [facility] - POINT OF CARE ORDERABLES documented in this encounter Visit Diagnoses Diagnosis Strep throat- Primary Streptococcal sore throat documented in this encounter Care Teams Cloth Bleaching Range Operator Chief Relationship Specialty Start Date End Date Darius Schuler DO PCP - General Internal Medicine 06/28/16 documented as of this encounter
--- OUTSIDE RECORDS SUMMARY | 2024-03-23 11:07 | XMS_ITS | Encounter Summary ---
Author Organization [facility] Address [address] [place] [address] Care Team Providers Care Licensed Loan Officer Assistant Name Role Phone Darius Schuler DO Primary Care Provider [phone] Reason for Visit * Reason Comments Ear Pain believes that a bug may have flown in her ear Encounter Details Date Type Department Care Team (Late st Contact Info) Description 08/18/2017 9:20 AM CDT Office Visit [facility] AT [address] [phone] Provider, Shakira Exp [place] Dysfunction of both eustachian tubes (Primary Dx) Social History Tobacco Use Types Packs/Day Years Used Date Smoking Tobacco: Never Smokeless Tobacco: Never Sex and Gender Information Value Date Recorded Sex Assigned at Not on file Gender Identity Not on file Sexual Orientation Not on file documented as of this encounter Last Filed Vital Signs Vital Sign Reading Time Taken Comments Blood Pressure 100/68 08/18/2017 9:26 AM CDT Pulse 71 08/18/2017 9:26 AM CDT Temperature 36.7 ??C (98 ??F) 08/18/2017 9:26 AM CDT Respiratory Rate 18 08/18/2017 9:26 AM CDT Oxygen Saturation 99% 08/18/2017 9:26 AM CDT Inhaled Oxygen Concentration - - Weight 59 kg (130 lb) 08/18/2017 9:26 AM CDT Height 152.4 cm (5') 08/18/2017 9:26 AM CDT Body Mass Index 25.39 08/18/2017 9:26 AM CDT documented in this encounter Patient Instructions * Patient Instructions* Bryant Rdz APRN-CNP - 08/18/2017 9:58 AM CDT Eustachian Tube Dysfunction WHAT YOU NEED TO KNOW: What is eustachian tube dysfunction? Eustachian tube dysfunction (ETD) is a condition that preventsyour eustachian tubes from opening properly. It can also cause them to become blocked. Eustachian tubes connect your middle ear to the back of your nose and throat. These tubes open and allow air to flow in and out when you sneeze, swallow, or yawn. What causes or increases my risk of ETD? ETD may be caused by swelling or buildup of mucus in your eustachian tubes. Allergies, a cold, or sinus infection can increase your risk for ETD. Smoking alsoincreases your risk for ETD. What are the signs and symptoms of ETD? ?? Fullness or pressure in your ears ?? Muffled hearing ?? Pain in one or both ears ?? Ringing in your ears ?? Popping or clicking feeling in your ears ?? Trouble keeping your balance How is ETD diagnosed? Your healthcare provider will ask about your symptoms. He will examine your ears, your nose, and the back of your throat. He may also do a hearing test. How is ETD treated? Your ETD may get better on its own without any treatment. You may need any of the following: ?? Exercises such as swallowing, yawning, or chewing gum may help to open your eustachian tubes. Your healthcare provider may also recommend that you take a deep breath and then blow with your mouth shut and your nostrils pinched closed. ?? Air pressure devices push air into your nose and eustachian tubes to help relieve air pressure in your ear. ?? Treatment for allergies such as decongestants, antihistamines, and nasal steroids may improve ETD. They may help decrease swelling of the eustachian tubes. ?? Ear tubes may help to keep your middle ear open. During this procedure, your healthcare providerwill cut a small hole in your eardrum. ?? A myringotomy is procedure to make a small cut in your eardrum and suction out fluid from your middle ear. ?? Tuboplasty is a procedure to widen your eustachian tubes. When should I contact my healthcare provider? ?? Your symptoms do not improve or get worse. ?? You have a fever. ?? You have any hearing loss. ?? You have questions or concerns about your condition or care. CARE AGREEMENT: You have the right to help plan your care. Learn about your health condition and how it may be treated. Discuss treatment options with your caregivers to decide what care you want to receive. You always have the right to refuse treatment. The above information is an manager educational only. It is not intended as medical advice for individual conditions or treatments. Talk to your doctor, nurse or pharmacist before following any medical regimen to see if it is safe and effective for you. ?? 2017 [employer] Information is for End User's use only and may not be sold, redistributed or otherwise used for commercial purposes. All illustrations and images included in CareNotes?? are the copyrighted property of [employer], [employer]. or [employer]. documented in this encounter Progress Notes * Bryant Rdz APRN-CNP - 08/18/2017 9:55 AM CDT Subjective: Jessika Dill is a 42 y.o. female who presents for evaluation: Chief Complaint Patient presents with ??? Ear Pain believes that a bug may have flown in her ear Primary Care Physician is Darius Schuler DO. Symptoms include ear pain right and plugged sensation right. Onset of symptoms was 4 days ago, unchanged since that time. right ear pressure/pain. She is drinking plenty of fluids. Evaluation to date: none. Treatment to date: none Allergies Allergen Reactions ??? Cephalosporins Urticaria and Rash ??? Pcn [Penicillins] Urticaria and Rash ??? Codiene [Codeine] Nausea and/or Vomiting ??? Compazine [Prochlorperazine] Nausea and/or Vomiting ??? Sulphadimidine [Sulfamethazine] Urticaria No outpatient prescriptions have been marked as taking for the 08/18/17 encounter (Office Visit) with Provider, Shakira Winter. Past Medical History: Diagnosis Date ??? NEGATIVE PAST MEDICAL HISTORY - SEE PROBLEM LIST Social History Social History ??? Marital status: [...] ??? Not on file Social History Narrative Medications reviewed. Review of Systems Constitutional: Negative for fatigue, fevers, chills. Eyes: Negative Ears, nose, mouth, and throat: Positive for earaches on right, Negative for vertigo, sinus trouble,tonsillitis, congestion Respiratory: Negative for shortness of breath, dyspnea on exertion, acute cough, chronic cough Cardiovascular: Negative Neurological: Negative for headaches, dizziness, syncope Patient state she is concerned a bug may have flown into her ear Objective: BP 100/68 (BP SITE: LEFT ARM, BP POSITION: SITTING, BP CUFF SIZE: 11) Pulse 71 Temp 98 ??F (36.7 ??C) (Oral) Resp 18 Ht 1.524 m (5') Wt 59 kg (130 lb) SpO2 99% BMI 25.39 kg/m2 Skin: Physical Exam Exam General appearance: alert, cooperative, no distress Ears: neither Right tympanic membrane - bubbles present nor Left tympanic membrane - bubbles present Lungs: breath sounds normal and symmetric; no rales or wheezes Heart: regular rhythm, normal S1 and S2, without murmurs, gallops or rubs Neurologic: mental status normal; alert and oriented X 3; cranial nerves II - XII are grossly intact Assessment: . Encounter Diagnoses Name Primary? Dysfunction of both eustachian tubes Yes Plan: Drink plenty of fluids Get plenty of rest Cool mist humidifier Elevate head of bed Tylenol or Ibuprofen per package direction for discomfort\fever (if not allergic) Follow up in 2-3 days if no improvement or sooner if worsening. Flonase and sudafed as directed Continue to follow up with Darius Schuler DO as directed. After Visit Summary reviewed with patient. The patient indicates understanding of these issues and agrees with the plan. Patient discharged to Home .Bryant Rdz APRN-JJ 08/18/2017 9:55 AM No orders of the defined types were placed in this encounter. No results found for this or any previous visit (from the past 24 hour(s)). documented in this encounter Plan of Treatment Not on file documented as of this encounter Visit Diagnoses Diagnosis Dysfunction of both eustachian tubes- Primary Dysfunction of Eustachian tube documented in this encounter Care Teams Licensed Loan Officer Assistant Relationship Specialty Start Date End Date Darius Schuler DO PCP - General Internal Medicine 06/28/16 documented as of this encounter
--- OUTSIDE RECORDS SUMMARY | 2024-03-23 11:07 | XMS_ITS | Encounter Summary ---
Author Organization [facility] Address [address] [place] [address] Care Team Providers Care Warehouse Handler Name Role Phone Darius Schuler DO Primary Care Provider [phone] Reason for Visit * Reason Onset Date Comments Follow-up 08/20/2017 Encounter Details Date Type Department Care Team (Late st Contact Info) Description 08/20/2017 Telephone [facility] [place] [facility] [address] [phone] Provider, [facility] Follow-up Social History Tobacco Use Types Packs/Day [...] on filedocumented in this encounter Care Teams Warehouse Handler Relationship Specialty Start Date End Date Darius Schuler DO PCP - General Internal Medicine 06/28/16 documented as of this encounter
--- NOTE | 2024-04-08 08:29 | P.SLEEP_ITS ---
Sleep Study Date of Study: 03/15/24 Ordering Provider: Deborah Brownlee NP Interpreting Physician: Perla Dukes DO Sleep Study Type: Polysomnogram Height: 1.52 m Weight: 61.235 kg Body Mass Index: 26.4 Neck Circumference (inches): 13 Kimper: 14 Reason for Sleep Study daytime hypersomnia Sleep History The patient is a 48-year-old female that had a sleep study ordered by her primary care for evaluation of sleep apnea. The patient denies awakening from sleep short of breath. She rarely awakens at night with heartburn, belching or cough. She rarely snores and is never loud enough that others complain. She rarely has trouble sleeping when she has a cold. She denies waking up gasping for air throughout the night. She denies having breathing problems at night observed by herself or others. She denies sweating excessively at night. She rarely has heart palpitations or irregular heartbeats during the night. She occasionally falls asleep during the day but never while driving. She rarely experiences loss of muscle tone when extremely emotional. She occasionally has trouble at school or work due to sleepiness. She rarely feels unable to move while waking up or falling asleep. She rarely experiences vivid dreamlike scenes upon awakening or falling asleep. She rarely feels afraid of going to sleep. She occasionally has nightmares and occasionally remembers her dreams. She constantly has thoughts racing through her mind. She rarely feels sad, depressed or anxious. She frequently has muscular tension. She occasionally notices parts of her body jerk. She frequently kicks during the night. She occasionally has crawling and aching feelings in her legs and occasionally has leg pain during the night. She rarely grinds her teeth during sleep and rarely awakens with morning jaw pain. She is constantly bothered by pain during the day and occasionally awakened by pain during the night. She constantly wakes up feeling stiff in the morning. She constantly wakes up with sore or achy muscles. She constantly wakes up with pain in the neck, spine and other joints. She goes to bed at 10:00 p.m. on weekdays and between 10-11 p.m. on the weekends. It takes her 30-90 minutes to fall asleep. She wakes up very frequently throughout the night for unknown reasons and it can take to get 30 minutes to fall back asleep. She wakes up between 6:37 a.m. on weekdays and between 8-9 a.m. on the weekends. She is unsure how many hours of sleep she gets per night but she is in bed for 6-7 hours. She will stay in bed for 10-30 minutes after waking up in the morning. She currently lives with her and 3 children. She is denies engaging in physical exercise before bedtime. She will watch television before falling asleep. She will take naps in the afternoon or the evening but they are not refreshing. She consumes 2 caffeinated beverages per day. She denies tobacco, alcohol and recreational drug use. [facility] Past Medical History Medical History Migraines Broken finger Fractured rib Shoulder pain Fibromyalgia Tinnitus Headache Allergies Surgical History Surgical History H/O tubal ligation 2016 H/O section 2008, 2011, 2017 History of appendectomy 1984 Family History Family History Father Family history of diabetes mellitus in first degree relative, Onset Age: 64 Patient's father is Pancreatic cancer Grandparent Acute myocardial infarction Heart failure Cirrhosis Social History Social History Smoking status: Former smoker Second hand tobacco smoke exposure: No Smoking end date: 03/31/94 Alcohol intake: current Substance use type: does not use Lack of Transportation: No Lack of Food: Never True Current Housing: I Have Housing Concerned About Future Housing: No Difficulty Paying Gas/Electric Bills: No Difficulty Paying for Meds: No Currently Unemployed: No Education: Bachelor's Degree Difficulty w/ Childcare or Family Care: No Living arrangements: with family Gender identity (if verbalized by the patient): Female Medications Home Medications ?Medication ?Instructions ?Recorded ?Confirmed ?Type [id number]-Lp-jchp-minerals 1 tablet PO DAILY 04/28/20 11/25/23 History (Multiple Vitamin, Womens tablet) albuterol sulfate 90 mcg/actuation 1 puff inhalation Q4H PRN 12/04/22 11/25/23 Rx aerosol inhaler shortness of breath or wheezing #8.5 grams ferrous sulfate 325 mg (65 mg 325 mg PO DAILY #90 tabs 03/10/24 Rx iron) tablet Sleep Procedure A full night polysomnogram using the [employer] multi-channel system recorded the standard physiologic parameters including EEG, EOG, submentalis EMG, anterior tibialis EMG, EKG, body position, nasal and oral airflow using nasal pressure sensor and thermistor.? Respiratory parameters of chest and abdominal movements were recorded with Respiratory Inductance Plethysmography belts. Oxygen saturation was recorded by pulse oximetry. Video monitoring was also performed. Sleep stages, periodic limb movements, and EEG arousals were scored in 30 second epochs according to the criteria of the AASM Scoring Manual. The Apnea-Hypopnea Index was calculated using [facility] guidelines for definition of hypopnea with 4% O2 desaturations while scoring respiratory events. Sleep Architecture The total recording time was 519.3 minutes.? The total sleep time was 375.0 minutes. Sleep latency was 41.6 minutes. REM latency was 189.5 minutes. Sleep efficiency was 72.2%. The patient had 28 awakenings for an awakening index of 4.5. Wake after sleep onset time was 102.5 minutes. The patient spent 36.5 minutes, 9.7% of total sleep time in Stage N1. The patient spent 228.0 minutes, 60.8% in Stage N2. The patient spent 38.5 minutes, 10.3% in Stage N3. The patient spent 72.0 minutes, 19.2% in Stage REM sleep. Respiratory Analysis The patient had 1 hypopnea for an overall Apnea Hypopnea Index of 0.2. The REM Apnea Hypopnea Index was 3.3. The NREM Apnea Hypopnea Index was 0. The patient had a Central Apnea Hypopnea Index of 0. There was no evidence of Jose-Barker Respirations. Arousals There were 66 total arousals for an arousal index of 10.6. There were 45 spontaneous arousals for an index of 7.2. There were 6 arousals due to respiratory events for an index of 1.0. There were 0 arousals due to periodic limb movements for an index of 0.? There were 16 arousals due to isolated limb movements for an index of 2.6. Periodic Limb Movements The patient had 30 isolated limb movements with an index of 4.8. The patient had 0 periodic limb movements with an index of 0. Patient had a total of 30 limb movements with a total limb movement index of 4.8. Oximetry Data The patient had an average oxygen saturation of 96.7% in sleep with a minimum oxygen saturation of 93.0% and a maximum oxygen saturation of 99.0%. The patient had 1 oxygen desaturation that was 4% or greater resulting in an Oxygen Desaturation Index of 0.2.? The patient spent 0 minutes of total sleep time with an oxygen saturation below 88%. Snoring Profile Snoring was not present during this study. Cardiac Profile The EKG showed normal sinus rhythm.?No arrhythmias or premature beats were seen. The patient had an average pulse rate of 66.4 bpm with a minimum pulse of rate of 51.0 bpm and a maximum pulse rate of 102.0 bpm.? EEG Profile No signs of seizure activity seen. Assessment and Plan Assessment and Plan (1) Insomnia: Qualifiers: Insomnia type: due to other mental disorder Qualified Code(s): F51.05 - Insomnia due to other mental disorder; F99 - Mental disorder, not otherwise specified Code(s): G47.00 - Insomnia, unspecified Status: Acute Assessment and Plan: The patient had an overall AHI of 0.2 with desaturation down to 93%. This is not consistent with sleep-disordered breathing. The patient's sleep history is consistent with insomnia, both sleep-onset and sleep-maintenance. The patient's sleep history is also suggestive of underlying anxiety. I recommend that the patient complete a PHQ-9 and OTTO-7 for further evaluation of mood disorders and review the results with her PCP. Uncontrolled mood disorders can contribute to daytime hypersomnia as well as insomnia. Insomnia Tips * Have a wind down period before bed where there are no electronics, blue light or stimulating activities. 30 minutes- 1 hour. * Establish a set wake-up time for yourself, and get up at the set time even if you feel like you need more sleep * Do not go to bed until you are ready to fall asleep. Do not go to bed because it is bedtime * If you have not gone to sleep after what feels like 20 minutes, get up and leave the bedroom. Meditate, pray, listen to soft music or read a boring book until you feel sleepy.? No work or productive activities. Go back to bedroom and try to fall asleep. Repeat cycle as many times until you fall asleep. * The bed is only meant for sleep and sex. Avoid activities like reading, smoking, listening to the radio, using the computer, or watching TV in bed. * Try to keep active during the day and avoid napping. * No caffeine after noon. The patient's sleep history is somewhat suggestive of Restless Leg Syndrome. I recommend that the patient have a serum ferritin drawn for evaluation of iron deficiency anemia. If the patient has a serum ferritin less than 75 ng/mL, I recommend starting a daily iron supplement and a Vitamin C supplement for better absorption. If the serum ferritin is greater than 75 ng/mL, I recommend starting a dopamine agonist and titrating the dose until symptoms resolve. There are nonpharmacological methods to treat limb movements including daily exercise, stretching calf muscles before bed, avoiding excessive amounts of caffeine and alcohol, vitamin B supplementation, magnesium lotion massaged into legs before bed, and use of a weighted blanket. Data The data obtained during this sleep study is adequate for interpretation. Certification This sleep study has been reviewed by a board certified sleep medicine physician.
[2024-04-12 15:22] VITALS: BMI 26.4
== END 2024-03-16 06:46 | disposition home or self-care (01) ==
PROVIDERS: PCP Nurse Practitioner; Visit Provider Nurse Practitioner
DX: F51.05 Insomnia due to other mental disorder (principal); F99 Mental disorder, not otherwise specified; G47.10 Hypersomnia, unspecified
CPT/HCPCS: 95810

== ENCOUNTER 2024-07-01 08:12 | Emergency (ER) | payer OTHER, SELFPAY ==
--- OUTSIDE RECORDS SUMMARY | 2024-07-01 08:18 | XMS_ITS | Clinical Summary ---
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 Gender Identity Not on file Sexual Orientation Not on file Plan of Treatment Health Maintenance Due Date Last Done Comments Hepatitis C Virus (HCV) Screening 1976 TdaP Immunization 1976 Hepatitis B Immunization (1 of 3 - 19+ 3-dose series) 1995 Pap Smear 1997 Cervical Cancer Screening (CCS) 2006 HPV/Cotest 2006 Discussion re Starting/Frequ ency of Mammograms 2016 Colonoscopy 2021 Colorectal Cancer Screening 2021 Influenza Immunization (#1) 2023 01/21/2020 SARS-COV-2 Immunization ( season) 2023 Respiratory Syncytial Virus (RSV) Immunization (Adult) (1 - 1-dose 75+ series) 2051 Meningococcal Immunization (ACWY) Aged Out No longer eligible based on patient's age to complete this topic Pneumococcal Immunization Combined Aged Out No longer eligible based on patient's age to complete this topic Rotavirus Immunization Aged Out No lo nger eligible based on patient's age to complete this topic
--- OUTSIDE RECORDS SUMMARY | 2024-07-01 08:18 | XMS_ITS | Clinical Summary ---
Author Organization [facility] Address [address] [place] [address] Care Team Providers Care Education Specialist Name Role Phone Darius Schuler DO Primary Care Provider Source Comments [facility],non-owned Affiliates and Associated Physician Practices is amultiple site organization consisting of ambulatory clinics and hospital sitesin [place], [place], [place] and [place]. This disclosure is being madepursuant to the Care Everywhere program and may not contain all information available regarding this patient. Last updated 17.[facility] Allergies Active Allergy Reactions Criticality Noted Date [...] 93 09/19/2018 10:38 AM CDT Temperature 37.5 C (99.5 F) 09/19/2018 10:38 AM CDT Respiratory Rate 17 09/19/2018 10:38 AM CDT [...] 3-dose series) 1995 SCREENING FOR DIABETES 09/19/2018 COVID-19 VACCINE ( - 2023-2 5 season) 2023 INFLUENZA VACCINE (#1) 2023 12/16/2016 DEPRESSION SCREENING 03/31/2024 ZOSTER VACCINE (1 of 2) 2026 HIB VACCINE Aged Out No longer eligi ble based on patient's age to complete this topic HPV VACCINE Aged Out No longer eligi ble based on patient's age to complete this topic MENINGOCOCCAL (Group B) VACC INE SHARED DECISION-MAKING Aged Out No longer eligibl e based on patient's age to complete this topic MENINGOCOCCAL GROUPS A/C/Y/W VACCINE Aged Out No longer eligible b ased on patient's age to complete this topic PNEUMOCOCCAL VACCINE Aged Out No long er eligible based on patient's age to complete this topic Care Teams Education Specialist Relationship Specialty Start Date End Date Darius Schuler DO PCP - General Internal Medicine 06/28/16
--- OUTSIDE RECORDS SUMMARY | 2024-07-01 08:18 | XMS_ITS | Clinical Summary ---
Author Organization [facility] Address [address] [place] [address] Care Team Providers Care Internet Marketing Director Name Role Phone Darius Schuler DO Primary Care Provider [phone]- [phone] Allergies Active Allergy Reactions Criticality Noted Date Comments Cephalosporins Diarrhea,Nausea only,Vomiting Low Reaction: NAUSEA, VOMITING, DIARRHEA, , Codeine Cough Low Reaction: COUGH, , Penicillins Hives Medium Reaction: HIVES, Prochlorperazine Mental status changes Low Reaction: CONFUSION, , , Sulfa (Sulfonamide Antibiotics) Hives Medium Reaction: HIVES Medications ACCU-CHEK MULTICLIX LANCET lancets 12/20/2016 Acti ve progesterone (PROMETRIUM) 200 mg capsule One capsule per vagina at bedtime daily 12 capsule 01/27/2017 Active Active Problems Problem Noted Date Diagnosed Date History of gestational diabetes 04/02/2017 Resolved Problems Problem Noted Date Diagnosed Date Resolved Date 33 weeks gestation of 01/20/2017 02/05/2017 History of placenta previa 12/30/2016 1 04/07/2016 Ultrasound scan to check int erval growth of fetus 12/30/2016 02/05/2017 Diet controlled gestational diabetes mellitus (GDM) in third trimester 08/14/2013 04/02/2017 Overview (07/05/2016): DM, gestational, diet controlled Immunizations Immunization Administration Dates Next Due Influenza, Quadrivalent, Spl it, Preservative Free, Intramuscular 12/16/2016 Rho (D) Immune Globulin 12/16/2016 Tdap 01/13/2017 Surgical History Surgery Date Site/Laterality Comments SECTION 03/31/2008 - 03/30/2009 : SECTION 03/31/2011 - 03/30/2012 : PELVIC LAPAROSCOPY infertility: diagnostic laparoscopy APPENDECTOMY appendicitis: Appendectomy Medical History Medical History Date Comments 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 ; Comme nts: Ludwin, gestational DM; Outcome: 39 1/2 week 7 lb(s) 15 oz Male 2011 ; Comme nts: Ronald,gestational DM; Outcome: 37 week 6 lb(s) 1 oz Male Appendicitis appendicitis Family History Medical History Relation Name Comments Diabetes Father 2 Diabetes mellit us; Pancreatic cancer Father 2 Cancer, pa ncreatic; Cause of : Cancer, pancreatic Coronary artery disease Mother 2 Lobo nary artery disease; [place] age 58 Relation Name Status Comments Father 1 (Age 62) Father 2 Mother 1 Alive Mother 2 Social History Tobacco Use Types Packs/Day Years Used Date Smoking Tobacco: Never Smokeless Tobacco: Never Alcohol Use Standard Drinks/Week Comments No 0 (1 standard drink = 0.6 oz pur e alcohol) Comments No Sex and Gender Information Value Date Recorded Sex Assigned at Not on file 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 Gender Identity Female 07/10/2023 12:43 PM CDT Sexual Orientation Straight 07/10/2023 12 :43 PM CDT Obstetrics History Para Term AB IAB SAB Ectopic Multiple Livin g Live Births 1 1 1 1 1 Date Outcome GA Total Labor Labor/2nd/3rd Weight Sex Type Anes PTL Leonora A1 A5 Name Clin 03/03 Term 39w 0d 3.572 kg (7 lb 14 oz) F CS-LT ranv Spinal N Livin g Dina Complications:None Last Filed Vital Signs Vital Sign Reading Time Taken Comments Blood Pressure 112/64 04/02/2017 2:31 PM RUG DESIGNER Pulse - - Temperature - - Respiratory Rate - - Oxygen Saturation - - Inhaled Oxygen Concentration - - Weight 59 kg (130 lb) 04/02/2017 2:31 PM RUG DESIGNER Height 152.4 cm (5') 04/02/2017 2:31 PM RUG DESIGNER Body Mass Index 25.39 04/02/2017 2:31 PM RUG DESIGNER Plan of Treatment Not on file Insurance [facility] Care Teams Internet Marketing Director Relationship Specialty Start Date End Date Darius Schuler DO PCP - General 02/24/17
--- OUTSIDE RECORDS SUMMARY | 2024-07-01 08:18 | XMS_ITS | Referral Summary ---
Author Organization [facility] Address [address] [place] [address] Care Team Providers Care Catalog Specialist Name Role Phone Darius Schuler DO Primary Care Provider [phone]- [phone] Allergies Active Allergy Reactions Criticality Noted Date [...] Rho (D) Immune Globulin 12/16/2016 Tdap 01/13/2017 Social History Tobacco Use Types Packs/Day Years Used Date Smoking Tobacco: Never Smokeless Tobacco: Never Alcohol Use Standard Drinks/Week Comments No 0 (1 standard drink = 0.6 oz pur e alcohol) Comments No Sex and Gender Information Value Date Recorded Sex Assigned at Not on file 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 Gender Identity Female 07/10/2023 12:43 PM CDT Sexual Orientation Straight 07/10/2023 12 :43 PM CDT Last Filed Vital Signs Vital Sign Reading Time Taken Comments Blood Pressure 112/64 04/02/2017 2:31 PM PRINT COLOR OPERATOR Pulse - - Temperature - - Respiratory Rate - - Oxygen Saturation - - Inhaled Oxygen Concentration - - Weight 59 kg (130 lb) 04/02/2017 2:31 PM PRINT COLOR OPERATOR Height 152.4 cm (5') 04/02/2017 2:31 PM PRINT COLOR OPERATOR Body Mass Index 25.39 04/02/2017 2:31 PM PRINT COLOR OPERATOR Plan of Treatment Not on file Insurance [facility] H[facility]/PPO Address: [address] [address] Care Teams Catalog Specialist Relationship Specialty Start Date End Date Darius Schuler DO PCP - General 02/24/17
[2024-07-01 08:31] VITALS: BP 113/62; PULSE 104; RESP 20; TEMP 36.4; O2SAT 100
[2024-07-01 08:36] VITALS: BP 132/90; PULSE 76; RESP 16; O2SAT 100
--- OUTSIDE RECORDS SUMMARY | 2024-07-01 08:45 | XMS_ITS | Clinical Summary ---
Author Organization [facility] Address [address] [place] [address] Care Team Providers Care Tumbling And Rolling Supervisor Name Role Phone Darius Schuler DO Primary Care Provider [phone]- [phone] Allergies Active Allergy Reactions Criticality Noted Date [...] Cancer, pancreatic Coronary artery disease Mother 2 Lboo nary artery disease; [place] age 58 Relation Name Status Comments Father [...] on file Legal Sex Female 10:19 AM MIDDLE STITCHER Gender Identity Female 07/10/2023 12:43 PM CDT [...] Comments Blood Pressure 112/64 04/02/2017 2:31 PM MIDDLE STITCHER Pulse - - Temperature - - Respiratory Rate - - Oxygen Saturation - - Inhaled Oxygen Concentration - - Weight 59 kg (130 lb) 04/02/2017 2:31 PM MIDDLE STITCHER Height 152.4 cm (5') 04/02/2017 2:31 PM MIDDLE STITCHER Body Mass Index 25.39 04/02/2017 2:31 PM MIDDLE STITCHER Plan of Treatment Not on file Insurance [facility] H[facility]/PPO Address: [address] [address] Care Teams Tumbling And Rolling Supervisor Relationship Specialty Start Date End Date Darius Schuler DO PCP - General 02/24/17
--- OUTSIDE RECORDS SUMMARY | 2024-07-01 08:45 | XMS_ITS | Clinical Summary ---
Author Organization [facility] Address [address] [place] [address] Care Team Providers Care Emergency Medicine Physician Assistant Name Role Phone Darius Schuler DO Primary Care Provider [phone] Source Comments [facility],non-owned Affiliates and Associated Physician Practices is amultiple site organization consisting of ambulatory clinics and hospital sitesin [place], [place], [place] and [place]. This disclosure is being madepursuant to the Care Everywhere program and may not contain all information available regarding this patient. Last updated 17.[facility] Allergies Active Allergy Reactions Criticality Noted Date [...] age to complete this topic Care Teams Emergency Medicine Physician Assistant Relationship Specialty Start Date End Date Darius Schuler DO PCP - General Internal Medicine 06/28/16
--- OUTSIDE RECORDS SUMMARY | 2024-07-01 08:45 | XMS_ITS | Referral Summary ---
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 Gender Identity Female 07/10/2023 12:43 PM CDT Sexual Orientation Straight 07/10/2023 12 :43 PM CDT Last Filed Vital Signs Vital Sign Reading Time Taken Comments Blood Pressure 112/64 04/02/2017 2:31 PM CASHIER COURTESY BOOTH Pulse - - Temperature - - Respiratory Rate - - Oxygen Saturation - - Inhaled Oxygen Concentration - - Weight 59 kg (130 lb) 04/02/2017 2:31 PM CASHIER COURTESY BOOTH Height 152.4 cm (5') 04/02/2017 2:31 PM CASHIER COURTESY BOOTH Body Mass Index 25.39 04/02/2017 2:31 PM CASHIER COURTESY BOOTH Plan of Treatment Not on file Insurance Care Teams Special Needs Child Caregiver Relationship Specialty Start Date End Date Darius Schuler DO PCP - General 02/24/17
--- OUTSIDE RECORDS SUMMARY | 2024-07-01 08:45 | XMS_ITS | Clinical Summary ---
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
[2024-07-01 08:46] VITALS: BP 125/94; PULSE 81; RESP 18; O2SAT 99
[2024-07-01 09:31] VITALS: BP 119/83; PULSE 79; RESP 17; O2SAT 100
[2024-07-01 09:34] LABS: Influenza A QL RT-PCR Negative (Negative); Influenza B QL RT-PCR Positive (Negative); RSV RNA, RT-PCR Negative (Negative); SARS-CoV-2 RNA PCR Negative (Negative)
--- NOTE | 2024-07-01 10:03 | ED_ITS ---
HPI - General Adult General Chief complaint: Unspecified Stated complaint: sick since Friday Time Seen by Provider: 07/01/24 08:33 History of Present Illness HPI narrative: 49-year-old female presented to the emergency department for evaluation for nausea, decreased p.o. intake body aches fatigue since Friday. Patient had been taking Tylenol and ibuprofen for pain control. Related Data Home Medications ?Medication ?Instructions ?Recorded ?Confirmed ?Last Taken ?Type ymeohydvmpmz-Yj-lwea-minerals 1 tablet PO DAILY 04/28/20 04/27/24 Unknown History (Multiple Vitamin, Womens tablet) omega-3 fatty acids [[place] 3 Fish 1 cap PO DAILY 04/27/24 04/27/24 Unknown History Oil Concentrate] Allergies Allergy/AdvReac Type Severity Reaction Status Date / Time Sulfa (Sulfonamide Allergy Mild Rash Verified 07/01/24 08:12 Antibiotics) Cephalosporins Allergy Unknown Rash Verified 07/01/24 08:12 codeine Allergy Unknown NAUSEA Verified 07/01/24 08:12 Penicillins Allergy Unknown HIVES Verified 07/01/24 08:12 prochlorperazine Allergy Unknown SHAKES/TREM Verified 07/01/24 08:12 ORS Review of Systems Review of Systems: All systems reviewed & are unremarkable except as noted in HPI and below PMFSH Past Medical History Medical History Migraines Broken finger Fractured rib Shoulder pain Fibromyalgia Tinnitus Headache Allergies Surgical History Surgical History H/O tubal ligation 2017 H/O section 2008, 2011, 2017 History of appendectomy 1984 Family History Family History Father Family history of diabetes mellitus in first degree relative, Onset Age: 64 Patient's father is Pancreatic cancer Grandparent Acute myocardial infarction Heart failure Cirrhosis Social History Social History Smoking status: Former smoker Second hand tobacco smoke exposure: No Smoking end date: 03/31/94 Alcohol intake: current Substance use type: does not use Lack of Transportation: No Lack of Food: Never True Current Housing: I Have Housing Concerned About Future Housing: No Difficulty Paying Gas/Electric Bills: No Difficulty Paying for Meds: No Currently Unemployed: No Education: Bachelor's Degree Difficulty w/ Childcare or Family Care: No Living arrangements: with family Gender identity (if verbalized by the patient): Female Exam Narrative: APPEARANCE: Well appearing, no pain, no distress, well-nourished. HEAD: normocephalic, atraumatic. EYES: PERRLA/EOMI, conjunctivae clear. NOSE: Normal no drainage EARS:TMS clear with good light reflex. THROAT: Pharynx clear, no exudate. NECK: Supple. No adenopathy, no masses. RESPIRATORY: Airway patent, respirations nonlabored. Clear to auscultation bilaterally, no rales, rhonchi, wheezing. CARDIOVASCULAR: Regular rate and rhythm without murmurs rubs or gallops. ABDOMINAL: Soft, nontender, nondistended, normal bowel sounds MUSCULOSKELETAL: Moves all extremities. Strength/ROM intact, No edema, No calf tenderness. NEURO: Alert. Cranial nerves II through XII intact. Good gait. Good coordination SKIN: Warm, dry. Normal Color Course Vital Signs Vital signs: Vital Signs Temperature 97.6 F 07/01/24 08:31 Pulse Rate 104 H 07/01/24 08:31 Respiratory Rate 20 07/01/24 08:31 Blood Pressure 113/62 07/01/24 08:31 Pulse Oximetry 100 07/01/24 08:31 Oxygen Delivery Room Air 07/01/24 08:31 Temperature 97.6 F 07/01/24 08:31 Pulse Rate 80 07/01/24 10:23 Respiratory Rate 18 07/01/24 10:23 Blood Pressure 112/79 07/01/24 10:23 Pulse Oximetry 98 07/01/24 10:23 Oxygen Delivery Room Air 07/01/24 08:31 Medical Decision Making MDM Narrative Medical decision making narrative: 49-year-old female present to the emergency department for evaluation for cough congestion body ache fatigue nausea without vomiting. Patient did test positive for influenza B. patient was no longer tachycardic, normotensive with normal pulse ox. Patient declined IV fluids. Patient will be prescribed Zofran for nausea control. Differential Diagnosis Differential Diagnosis: COVID, RSV, influenza, pneumonia Vital Signs Vital Signs: Vital Signs Temperature 97.6 F 07/01/24 08:31 Pulse Rate 104 H 07/01/24 08:31 Respiratory Rate 20 07/01/24 08:31 Blood Pressure 113/62 07/01/24 08:31 Pulse Oximetry 100 07/01/24 08:31 Oxygen Delivery Room Air 07/01/24 08:31 Temperature 97.6 F 07/01/24 08:31 Pulse Rate 80 07/01/24 10:23 Respiratory Rate 18 07/01/24 10:23 Blood Pressure 112/79 07/01/24 10:23 Pulse Oximetry 98 07/01/24 10:23 Oxygen Delivery Room Air 07/01/24 08:31 Lab Data Lab results reviewed: Yes I reviewed the patient's lab results. Labs: Lab Results 07/01/24 Range/Units 08:53 Influenza A (RT-PCR) Negative (Negative) Influenza B (RT-PCR) Positive A (Negative) RSV (RT-PCR) Negative (Negative) SARS-CoV-2 RNA (RT-PCR) Negative (Negative) Discharge Plan Discharge Clinical Impression: Influenza B Patient Disposition: Home, Self-Care Condition: Stable Instructions: Antibiotic Form, Viral Syndrome (ED) Additional Instructions: Tylenol and ibuprofen for pain control and body aches and fever. Zofran as needed for nausea control. Clear liquid diet for the next 1-3 days. Have close follow-up with your primary care physician. Patient Language: Croatian Prescriptions: New ondansetron 4 mg tablet,disintegrating 4 mg PO Q8H PRN (Reason: nausea and vomiting) Qty: 14 0RF No Action omega-3 fatty acids [[place] 3 Fish Oil Concentrate] 1 cap PO DAILY eszopiclone [Lunesta] 1 mg tablet 1 mg PO QHS Qty: 30 0RF Multiple Vitamin, Womens Tablet 1 tablet PO DAILY ferrous sulfate 325 mg (65 mg iron) tablet 325 mg PO DAILY Qty: 90 1RF Follow-up/Referrals: Deborah Brownlee DRAFTER CONSTRUCTION [Primary Care Provider] - Stand Alone Forms: Work/School Release IP
[2024-07-01 10:23] VITALS: BP 112/79; PULSE 80; RESP 18; O2SAT 98
== END 2024-07-01 10:25 | disposition home or self-care (01) ==
PROVIDERS: Emergency Provider Emergency Medicine; PCP Nurse Practitioner
DX: J10.1 Influenza due to other identified influenza virus with other respiratory manifestations (principal); Z87.891 Personal history of nicotine dependence; Z20.822 Contact with and (suspected) exposure to COVID-19
CPT/HCPCS: 87637; 99283

== ENCOUNTER 2024-09-28 11:27 | Outpatient (CLI) | payer OTHER, SELFPAY ==
--- NOTE | ~2024-09-28 | MM_ITS ---
EXAMINATION: MM screening arnol BI w nilay HISTORY: Screening mammogram TECHNIQUE: Craniocaudal and mediolateral oblique 3-D tomosynthesis images were obtained and synthetic 2-D images were generated. CAD analysis was submitted and interpreted. COMPARISON: No prior mammogram is available for comparison at this institution. BREAST PARENCHYMAL COMPOSITION:Not Dense. There are scattered areas of fibroglandular density. FINDINGS: There is an asymmetry in the lower, inner left breast. No parenchymal abnormality of the ri ght breast seen. No suspicious masses or calcifications. IMPRESSION: Asymmetry at the lower, inner left breast. Spot compression views, and possibly ultrasound, are recom mended for further evaluation. BI-RADS Category 0: Incomplete: Needs additional imaging evaluation. Reviewed, dictated and finalized at [facility]. IMPRESSION: Asymmetry at the lower, inner left breast. Spot compression views, and possibly ultrasound, are recommended for further evaluation. BI-RADS Category 0: Incomplete: Needs additional imaging evaluation.
== END 2024-09-28 11:28 | disposition home or self-care (01) ==
LOC: MICIMG 11:28
PROVIDERS: PCP Nurse Practitioner; Visit Provider Nurse Practitioner
DX: Z12.31 Encounter for screening mammogram for malignant neoplasm of breast (principal); N64.89 Other specified disorders of breast
CPT/HCPCS: 77063; 77067

== ENCOUNTER 2024-10-11 08:34 | Outpatient (CLI) | payer OTHER, SELFPAY ==
--- NOTE | ~2024-10-11 | MMUS_ITS ---
EXAMINATION: MM diagnostic arnol LT w nilay, US breast LT limited HISTORY: Follow-up left breast asymmetry TECHNIQUE: Additional 3-D tomosynthesis images of the left breast were performed and synthetic 2-D im ages were generated. CAD analysis was submitted and interpreted. High resolution Limited left breast ultrasound was performed. COMPARISON: 09/28/2024 BREAST PARENCHYMAL COMPOSITION: Dense: The breasts are heterogeneously dense, which may obscure small masses FINDINGS: MAMMOGRAPHIC FINDINGS: There are no suspicious masses, calcifications or architectural distortion in the left breast with sp ot compression and mediolateral views. ULTRASOUND: Limited left breast ultrasound: At 10:00, 5 cm from the nipple there is a 6 mm minimally complicated cyst. No suspicious vascularity or posterior shadowing. At 9:00, 5 cm from the nipple there is an irr egular shaped antiparallel mass measuring 1.4 x 1.2 x 0.7 cm. No internal vascularity. Next posterior attenuation. IMPRESSION: 1. Irregular shaped hypoechoic left breast mass at 9:00, 5 cm from the nipple measuring 1.4 cm. No de finite mammographic correlate. 2. Ultrasound-guided left breast biopsy recommended. BI-RADS category 4, suspicious findings. Reviewed, dictated and finalized at location [] IMPRESSION: 1. Irregular shaped hypoechoic left breast mass at 9:00, 5 cm from the nipple m easuring 1.4 cm. No definite mammographic correlate. 2. Ultrasound-guided left breast biopsy recommended. BI-RADS category 4, suspicious findings.
--- OUTSIDE RECORDS SUMMARY | 2024-10-11 08:44 | XMS_ITS | Clinical Summary ---
Author Organization [facility] Address [address] [place] [address] Care Team Providers Care Commercial Carpenter Name Role Phone Darius Schuler DO Primary Care Provider Source Comments [facility],non-owned Affiliates and Associated Physician Practices is amultiple site organization consisting of ambulatory clinics and hospital sitesin [place], [place], [place] and [place]. This disclosure is being madepursuant to the Care Everywhere program and may not contain all information available regarding this patient. Last updated 17.[facility] [employer] Allergies Active Allergy Reactions Criticality Noted Date Comments Cephalosporins Urticaria,Rash Medium 06/28/2016 Codeine Nausea and/or Vomiting 06/28/2016 Prochlorperazine Nausea and/or Vomiting 017 Penicillins Urticaria,Rash Medium 06/28/2016 Sulfamethazine Urticaria Medium 06/28/2016 Medications * Be aware that medications may not be up to date on this document. Alwaysverify current medications with the patient. azithromycin (ZITHROMAX) 250 MG tabletIndication s:Strep throat Take 2 tabs today, then 1 tab daily for next 4 days 6 tablet 09/19/2018 Active Active Problems Problem Noted Date Diagnosed Date History of gestational diabetes 04/02/2017 Social History Tobacco Use Types Packs/Day Years Used Date Smoking Tobacco: Never Smokeless Tobacco: Never Comments No Sex and Gender Information Value Date Recorded Sex Assigned at Not on file Legal Sex Female 8:08 AM CDT Gender Identity Not on file Sexual Orientation [...] SCREENING 1975 LIPID TESTING 1975 MAMMOGRAM 1976 HIV SCREENING 1991 HEPATITIS C SCREENING 05/24/1994 DTAP/TDAP/TD VACCINES (1 - Tdap) 1995 HEPATITIS B VACCINE (1 of 3 - 19+ 3-dose series) 1995 SCREENING FOR DIABETES 09/19/2018 COVID-19 VACCINE (1 - 2023-2 5 season) 2023 DEPRESSION SCREENING 03/31/2024 INFLUENZA VACCINE (#1) 2024 12/16/2016 ZOSTER VACCINE (1 of 2) 2026 [...] on patient's age to complete this [place] [address] [facility] Care Teams Commercial Carpenter Relationship Specialty Start Date End Date Darius Schuler DO PCP - General Internal Medicine 06/28/16
--- OUTSIDE RECORDS SUMMARY | 2024-10-11 08:44 | XMS_ITS | Referral Summary ---
Author Organization [facility] Address [address] [place] [address] Care Team Providers Care Supervisor Aluminum Boat Assembly Name Role Phone Darius Schuler DO Primary Care Provider +1- [phone] Allergies Active Allergy Reactions Criticality Noted Date [...] on file Legal Sex Female 10:19 AM FUEL EFFICIENT AIRCRAFT DESIGNER Gender Identity Female 07/10/2023 12:43 PM CDT Sexual Orientation Straight 07/10/2023 12 :43 PM CDT Last Filed Vital Signs Vital Sign Reading Time Taken Comments Blood Pressure 112/64 04/02/2017 2:31 PM FUEL EFFICIENT AIRCRAFT DESIGNER Pulse - - Temperature - - Respiratory Rate - - Oxygen Saturation - - Inhaled Oxygen Concentration - - Weight 59 kg (130 lb) 04/02/2017 2:31 PM FUEL EFFICIENT AIRCRAFT DESIGNER Height 152.4 cm (5') 04/02/2017 2:31 PM FUEL EFFICIENT AIRCRAFT DESIGNER Body Mass Index 25.39 04/02/2017 2:31 PM FUEL EFFICIENT AIRCRAFT DESIGNER Plan of Treatment Not on file Insurance [facility] H[facility]/PPO Address: [address] [address] Care Teams Supervisor Aluminum Boat Assembly Relationship Specialty Start Date End Date Darius Schuler DO PCP - General 02/24/17
--- OUTSIDE RECORDS SUMMARY | 2024-10-11 08:44 | XMS_ITS | Clinical Summary ---
Author Organization [facility] Address [address] [place] [address] Care Team Providers Care Valet Parker Name Role Phone Darius Schuler DO Primary Care Provider +1- [phone] Allergies Active Allergy Reactions Criticality Noted Date [...] disease Mother 2 Lobo nary artery disease; [place] age 58 Relation Name Status Comments Father [...] on file Legal Sex Female 10:19 AM CHIEF TELEPHONE OPERATOR Gender Identity Female 07/10/2023 12:43 PM [...] Comments Blood Pressure 112/64 04/02/2017 2:31 PM CHIEF TELEPHONE OPERATOR Pulse - - Temperature - - Respiratory Rate - - Oxygen Saturation - - Inhaled Oxygen Concentration - - Weight 59 kg (130 lb) 04/02/2017 2:31 PM CHIEF TELEPHONE OPERATOR Height 152.4 cm (5') 04/02/2017 2:31 PM CHIEF TELEPHONE OPERATOR Body Mass Index 25.39 04/02/2017 2:31 PM CHIEF TELEPHONE OPERATOR Plan of Treatment Not on file Insurance [facility] H[facility]/PPO Address: [address] [address] Care Teams Valet Parker Relationship Specialty Start Date End Date Darius Schuler DO PCP - General 02/24/17
--- OUTSIDE RECORDS SUMMARY | 2024-10-11 08:44 | XMS_ITS | Clinical Summary ---
Author Organization [facility] Care Team Providers Care Stone Derrickman And Rigger Name Role Phone Unavailable Primary Care Provider Unavailabl e Social History Tobacco Use Types Packs/Day Years Used Date Smoking Tobacco: Never Assessed Comments Unknown Sex and Gender Information Value Date Recorded Sex Assigned at Not on file Legal Sex Female 10:58 AM CALF SKINNER Gender Identity Not on file Sexual Orientation [...]
== END 2024-10-11 08:35 | disposition home or self-care (01) ==
LOC: CHSIMG 08:36
PROVIDERS: PCP Nurse Practitioner; Visit Provider Nurse Practitioner
DX: N64.89 Other specified disorders of breast (principal); R92.8 Other abnormal and inconclusive findings on diagnostic imaging of breast
CPT/HCPCS: 76642; 77061; 77065; G0279

== ENCOUNTER 2024-10-26 07:06 | Outpatient (CLI) | payer OTHER, SELFPAY ==
--- NOTE | ~2024-10-26 | MMUS_ITS ---
MM post biopsy diagnostic LT, US breast biopsy LT w image EXAMINATION: US GUIDED NEEDLE BIOPSY WITH VACUUM ASSISTANCE DATE: 10/26/2024 08:29 CDT INDICATION: Left breast mass seen on previous examination. Ultrasound-guided core biopsy is requeste d to evaluate for malignancy. BREAST PARENCHYMAL COMPOSITION: Dense: The breasts are heterogeneously dense, which may obscure small masses TECHNIQUE AND FINDINGS: The risks and potential benefits of the procedure were discussed with the patient, and written inform ed consent was obtained. After sterile preparation of the left breast, 1% lidocaine was utilized for local anesthesia. 1% lidocaine with epinephrine was used for deep anesthesia. A 10G vacuum-assisted biopsy gun needle was advanced through to the outer edge of the region of inter est from a lateral approach utilizing sonographic guidance. A total of for tissue core samples were obtained through the lesion. An Inrad tissue marker clip was then placed at the biopsy site. Hemosta sis was achieved. The patient tolerated procedure well and there was no evidence of immediate complication. The patien t was given verbal instructions partly is from the department. Left breast mammograms to document ti ssue marker clip placement. The tissue samples were submitted to surgical pathology for histologic an alysis. IMPRESSION: 1. Successful ultrasound-guided vacuum-assisted biopsy of left breast mass with post procedure mammo gram for marker placement. Please refer to pathology report for histologic analysis. Reviewed, dictated and finalized at location [] IMPRESSION: 1. Successful ultrasound-guided vacuum-assisted biopsy of left breast mass wit h post procedure mammogram for marker placement. Please refer to pathology repo rt for histologic analysis.
--- OUTSIDE RECORDS SUMMARY | 2024-10-26 07:10 | XMS_ITS | Clinical Summary ---
Author Organization [facility] Address [address] [place] [address] Care Team Providers Care Cell Changer Name Role Phone Darius Schuler DO Primary Care Provider +1- [phone] Allergies Active Allergy Reactions Criticality Noted Date [...] disease Mother 2 Lobo nary artery disease; [place] age 58 Relation Name Status Comments Father [...] on file Legal Sex Female 10:19 AM MORTGAGE PROFESSIONAL Gender Identity Female 07/10/2023 12:43 PM CDT [...] Comments Blood Pressure 112/64 04/02/2017 2:31 PM MORTGAGE PROFESSIONAL Pulse - - Temperature - - Respiratory Rate - - Oxygen Saturation - - Inhaled Oxygen Concentration - - Weight 59 kg (130 lb) 04/02/2017 2:31 PM MORTGAGE PROFESSIONAL Height 152.4 cm (5') 04/02/2017 2:31 PM MORTGAGE PROFESSIONAL Body Mass Index 25.39 04/02/2017 2:31 PM MORTGAGE PROFESSIONAL Plan of Treatment Not on file Insurance [facility] Care Teams Cell Changer Relationship Specialty Start Date End Date Darius Schuler DO PCP - General 02/24/17
--- OUTSIDE RECORDS SUMMARY | 2024-10-26 07:10 | XMS_ITS | Referral Summary ---
Author Organization [facility] Address [address] [place] [address] Care Team Providers Care Medical Economics Consultant Name Role Phone Darius Schuler DO Primary Care Provider +1- [phone] Allergies Active Allergy Reactions Criticality Noted Date [...] on file Legal Sex Female 10:19 AM IMMUNOLOGY TEACHER Gender Identity Female 07/10/2023 12:43 PM CDT Sexual Orientation Straight 07/10/2023 12 :43 PM CDT Last Filed Vital Signs Vital Sign Reading Time Taken Comments Blood Pressure 112/64 04/02/2017 2:31 PM IMMUNOLOGY TEACHER Pulse - - Temperature - - Respiratory Rate - - Oxygen Saturation - - Inhaled Oxygen Concentration - - Weight 59 kg (130 lb) 04/02/2017 2:31 PM IMMUNOLOGY TEACHER Height 152.4 cm (5') 04/02/2017 2:31 PM IMMUNOLOGY TEACHER Body Mass Index 25.39 04/02/2017 2:31 PM IMMUNOLOGY TEACHER Plan of Treatment Not on file Insurance [facility] HMO/PPO Address: [address] [address] Care Teams Medical Economics Consultant Relationship Specialty Start Date End Date Darius Schuler DO PCP - General 02/24/17
--- OUTSIDE RECORDS SUMMARY | 2024-10-26 07:10 | XMS_ITS | Clinical Summary ---
Author Organization [facility] Address [address] [place] [address] Care Team Providers Care Sole Stainer Name Role Phone Darius Schuler DO Primary Care Provider Source Comments [facility],non-owned Affiliates and Associated Physician Practices is amultiple site organization consisting of ambulatory clinics and hospital sitesin [place], [place]. This disclosure is being madepursuant to the Care Everywhere program and may not contain all information available regarding this patient. Last updated 17.[facility] [employer] Allergies Active Allergy Reactions Criticality Noted Date [...] age to complete this [place] [address] [facility] Care Teams Sole Stainer Relationship Specialty Start Date End Date Darius Schuler DO PCP - General Internal Medicine 06/28/16
--- OUTSIDE RECORDS SUMMARY | 2024-10-26 07:10 | XMS_ITS | Clinical Summary ---
Author Organization [facility] Care Team Providers Care Large Animal Veterinarian Name Role Phone Unavailable Primary Care Provider Unavailabl e Social History Tobacco Use Types Packs/Day Years Used Date Smoking Tobacco: Never Assessed Comments Unknown Sex and Gender Information Value Date Recorded Sex Assigned at Not on file Legal Sex Female 10:58 AM SUPERINTENDENT GENERAL Gender Identity Not on file Sexual Orientation Not on file Plan of Treatment Health Maintenance Due Date Last Done Comments Hepatitis C Virus (HCV) Screening 1976 TdaP Immunization 1976 Hepatitis B Immunization (1 of 3 - 19+ 3-dose series) 1995 Pap Smear 1997 Cervical Cancer Screening (CCS) 2006 HPV/Cotest 2006 Cologuard 2021 Colonoscopy 2021 Colorectal Cancer Screening 2021 Immunochemical Fecal Occult Blood 2021 SARS-COV-2 Immunization ( season) 2023 Influenza Immunization (#1) 2024 01/21/2020 Respiratory Syncytial Virus (RSV) Immunization (Adult) (1 - 1-dose 75+ series) 2051 Human Papillomavirus (HPV) Immunization Aged Out No longer eligible b ased on patient's age to complete this topic Meningococcal Immunization (ACWY) Aged Out No longer eligible based on patient's age to complete this topic Pneumococcal Immunization Combined Aged Out No longer eligible based on patient's age to complete this topic Rotavirus Immunization Aged Out No lo nger eligible based on patient's age to complete this topic
--- NOTE | 2024-10-26 08:20 | S_PTH ---
PATIENT: Jessika Dill LOC: [facility] U#:[id number] AGE/SX: 49/F ROOM: RE10/26/[address]: Kiara Mendoza MD : 1975 BED: DIS: 10/26/2024 SPEC #: [id number] RECD: 10/26/24 11:45 STATUS: MISTY REQ #: [id number] TILA: 10/26/24 08:[address]: Kiraa Mendoza DEPT: [facility] [place] Surgical RECD BY: Yesica Cui ENTERED: 10/26/24 11:46 SP TYPE: Surgical OTHR DR: Deborah Brownlee, DOUGLAS Tissues: A - Breast Biopsy Procedures: Hematoxylin and Eosin Stain Gross and Microscopic Level 4
== END 2024-10-26 07:07 | disposition home or self-care (01) ==
PROVIDERS: PCP Nurse Practitioner; Visit Provider Surgery
DX: N63.25 Unspecified lump in the left breast, overlapping quadrants (principal); N60.22 Fibroadenosis of left breast; N60.12 Diffuse cystic mastopathy of left breast
CPT/HCPCS: 19083; 77065; 88305; A4648

== ENCOUNTER 2025-02-03 10:30 | Emergency (ER) | payer OTHER, SELFPAY ==
--- NOTE | 2025-02-03 10:33 | ED_ITS ---
HPI - URI/Sore Throat General Chief Complaint: Upper Respiratory Infection Stated Complaint: SORE THROAT Time Seen by Provider: 02/03/25 10:32 Source: patient Mode of arrival: ambulatory Limitations: no limitations History of Present Illness HPI Narrative: Jessika is a 49-year-old female patient presenting to the clinic today with complaints of a sore throat x1 day. She reports has drink warm tea to help alleviate her symptoms. No fevers, chills, or body aches. Does report some nasal congestion and drainage going in the back of his throat. She has lost her voice. MD elicited complaint: sore throat and nasal congestion Related Data Home Medications ?Medication ?Instructions ?Recorded ?Confirmed ?Last Taken ?Type vraflbdmcvlp-Ox-vhnu-minerals 1 tablet PO DAILY 04/27/24 Unknown History (Multiple Vitamin, Womens tablet) omega-3 fatty acids [Hunter 3 Fish 1 cap PO DAILY 04/2704/27/24 Unknown History Oil Concentrate] Allergies Allergy/AdvReac Type Severity Reaction Status Date / Time Sulfa (Sulfonamide Allergy Mild Rash Verified 10/12/24 09:56 Antibiotics) Cephalosporins Allergy Unknown Rash Verified 10/12/24 09:56 codeine Allergy Unknown NAUSEA Verified 10/12/24 09:56 Penicillins Allergy Unknown HIVES Verified 10/12/24 09:56 prochlorperazine Allergy Unknown SHAKES/TREM Verified 10/12/24 09:56 ORS Review of Systems Review of Systems: Pertinent positives per HPI. Patient denies any fever, chills, rash, headache, visual changes, dizziness, shortness of breath, chest pain, palpitations, nausea, vomiting, diarrhea, constipation, abdominal pain, or any urinary issues. COUNTS INCLUDE 234 BEDS AT [facility] Past Medical History Medical History Migraines Broken finger Fractured rib Shoulder pain Fibromyalgia Tinnitus Headache Allergies Surgical History Surgical History H/O tubal ligation 2017 H/O section 2008, 2011, 2017 History of appendectomy 1984 Family History Family History Father Family history of diabetes mellitus in first degree relative, Onset Age: 64 Patient's father is Pancreatic cancer Grandparent Acute myocardial infarction Heart failure Cirrhosis Social History Social History Tobacco type: cigarettes Second hand tobacco smoke exposure: No Smoking end date: 03/31/94 Alcohol intake: current Substance use: never Substance use type: does not use Do You Feel Safe in your Home?: Yes Lack of Transportation: No Lack of Food: Never True Current Housing: I Have Housing Concerned About Future Housing: No Difficulty Paying Gas/Electric Bills: No Difficulty Paying for Meds: No Currently Unemployed: No Education: Bachelor's Degree Difficulty w/ Childcare or Family Care: No Living arrangements: with family Gender identity (if verbalized by the patient): Female Comments At the time of my signature, I reviewed and agree with the nursing past medical, surgical, social, and family history. There is no relevant family history pertinent to the patient complaint. Exam Narrative: General: Well-developed, well nourished, in no apparent distress Head: Normocephalic, atraumatic Eyes: Pupils equally round and reactive to light bilaterally, EOM intact, sclera and conjunctive clear, no discharge, lids normal Ears: TMs intact and clear, ear canals clear, no drainage, grossly hearing normal. Nose: Nares patent, clear nasal discharge, no inflammation, no sinus tenderness. Mouth: Oral pharynx red without lesions or masses, good dentition, MMM. Postnasal drip Neck: Supple, trachea midline, no enlargement of anterior or posterior cervical nodes, no thyroid masses or goiter palpable. Cardio: Regular rate and rhythm, s1 and s2 normal, no murmur appreciated. Resp: Clear to auscultation bilaterally, no rhonchi, rales, wheezing or rubs Course Course Emergency Course: Portions of this record may have been created with voice recognition software. Level of Care: Express Care Visit Vital Signs Vital signs: Vital Signs Temperature 35.8 C L 02/03/25 10:40 Pulse Rate 97 02/03/25 10:40 Respiratory Rate 16 02/03/25 10:40 Blood Pressure 117/86 02/03/25 10:40 Pulse Oximetry 99 02/03/25 10:40 Temperature 35.8 C L 02/03/25 10:40 Pulse Rate 97 11/06/25 10:40 Respiratory Rate 16 02/03/25 10:40 Blood Pressure 117/86 02/03/25 10:40 Pulse Oximetry 99 02/03/25 10:40 Vital signs reviewed MDM - URI/Sore Throat MDM Narrative Medical decision making narrative: At the time of visit patient is resting comfortably on the exam table. Patient appears to be nontoxic. complaints of a sore throat x1 day. She reports has drink warm tea to help alleviate her symptoms. No fevers, chills, or body aches. Does report some nasal congestion and drainage going in the back of his throat. She has lost her voice. On exam patient has bilateral TMs intact and clear, clear nasal drainage, postnasal drip, oropharynx mildly red, lung sounds are clear, heart rates regular rate rhythm. Labs: Strep test was performed and was negative in the clinic today. We will send strep for culture. Plan: I suspect patient has pharyngitis/URI. Work note was given. We will send strep for culture. Supportive measures were discussed with the patient and they voiced understanding discharge instructions and agrees to treatment plan. Return precautions reviewed Differential Diagnosis Differential diagnosis: Likely upper respiratory infection, otitis media, sinusitis, viral infection, bronchitis, influenza, pharyngitis and other (COVID) Discharge Plan Discharge Clinical Impression: Upper respiratory infection Qualifiers: URI type: unspecified URI Qualified Code(s): J06.9 - Acute upper respiratory infection, unspecified Pharyngitis Qualifiers: Pharyngitis/tonsillitis etiology: unspecified etiology Qualified Code(s): J02.9 - Acute pharyngitis, unspecified Patient Disposition: Home Condition: Stable Instructions: Antibiotic Form, Pharyngitis (ED), Cold Symptoms (ED) Additional Instructions: Strep test was negative in the clinic today. We will send strep for culture if this comes back positive we will contact him place you on antibiotics at that time. Increase fluids and stay well hydrated May take Tylenol or motrin as directed on bottle for pain/fever May use Flonase 1 spray in each nare daily May take OTC antihistamines such as Zyrtec or Claritin daily as directed on bottle May apply Vicks vapor rub to chest to open sinuses Sinus rinses for congestion Cepacol spray, cough drops, throat lozenges, warm tea with honey/lemon, gargle salt water to soothe throat BRAT diet for diarrhea Clear liquids x 24 hours then advance as tolerated for nausea/vomiting Go to the ED if you develop a worsening in your condition- high fever not controlled by Tylenol or Motrin, dehydration, weakness, lethargy, shortness of breath, or chest pain. Follow up with your PCP in 3-5 days if symptoms persist. Patient Language: Luxembourgish Prescriptions: No Action omega-3 fatty acids [Hunter 3 Fish Oil Concentrate] 1 cap PO DAILY eszopiclone [Lunesta] 1 mg tablet 1 mg PO QHS Qty: 30 0RF Multiple Vitamin, Womens Tablet 1 tablet PO DAILY ferrous sulfate 325 mg (65 mg iron) tablet 325 mg PO DAILY Qty: 90 1RF Follow-up/Referrals: Deborah Brownlee APRN [Primary Care Provider, Internal Medicine] Stand Alone Forms: Work/School Release IP Time of Disposition: 10:49 Quality NIHSS Nursing Documentation ED NIHSS nursing documentation: reviewed/agree
[2025-02-03 10:40] VITALS: BP 117/86; PULSE 97; RESP 16; TEMP 35.8; O2SAT 99
[2025-02-03 10:51] LABS: EDSTREPNEGPOS1 Negative (Negative)
== END 2025-02-03 10:56 | disposition home or self-care (01) ==
PROVIDERS: Emergency Provider Nurse Practitioner Family; PCP Nurse Practitioner
DX: J06.9 Acute upper respiratory infection, unspecified (principal); F17.210 Nicotine dependence, cigarettes, uncomplicated
CPT/HCPCS: 87081; 87880; 99213; G0463

== ENCOUNTER 2025-02-09 08:33 | Outpatient (CLI) | payer OTHER, SELFPAY ==
--- OUTSIDE RECORDS SUMMARY | 2025-02-09 08:52 | XMS_ITS | Clinical Summary ---
Author Organization [facility] Address [address] [place] [address] Care Team Providers Care Geriatric Social Worker Name Role Phone Darius Shculer DO Primary Care Provider [phone] Source Comments [facility],non-owned Affiliates and Associated Physician Practices is amultiple site organization consisting of ambulatory clinics and hospital sitesin [place], [place], [place] and [place]. This disclosure is being madepursuant to the Care Everywhere program and may not contain all information available regarding this patient. Last updated 17.[facility] [employer] Allergies Active Allergy Reactions Criticality Noted Date [...] of 3 - 19+ 3-dose series) 1995 PAP SMEAR 1997 SCREENING FOR DIABETES 09/19/2018 DEPRESSION SCREENING 03/31/2024 COVID-19 VACCINE (1 - 2023-2 5 season) 2024 INFLUENZA VACCINE (#1) 2024 12/16/2016 ZOSTER VACCINE [...] age to complete this topic [place] [address] [employer] SELF PAY NO INSURANCE Member Subscriber Plan / Payer (Ef fective for All Dates) Name:Maykelchris Jessika Member ID:Not on file Relation to Subscriber:Not on file Name:JESSIKA DILL Subscriber ID:Not on file (Home) Address: [address] [place] [address] [place] [address] Payer ID:Not on file Group ID:Not on file Type:Self Pay Address: [place], [place] Care Teams Geriatric Social Worker Relationship Specialty Start Date End Date Darius Schuler DO PCP - General Internal Medicine 06/28/16
--- OUTSIDE RECORDS SUMMARY | 2025-02-09 08:52 | XMS_ITS | Clinical Summary ---
Author Organization [facility] Address [address] [place] [address] Care Team Providers Care Senior Java Ui Developer Name Role Phone Darius Schuler DO Primary Care Provider [phone] Allergies Active Allergy Reactions Criticality Noted Date [...] disease Mother 2 Lobo nary artery disease; [place] age 58 Relation Name Status Comments Father [...] on file Legal Sex Female 10:19 AM RN CORONARY CARE UNIT Gender Identity Female 07/10/2023 12:43 PM CDT [...] Comments Blood Pressure 112/64 04/02/2017 2:31 PM RN CORONARY CARE UNIT Pulse - - Temperature - - Respiratory Rate - - Oxygen Saturation - - Inhaled Oxygen Concentration - - Weight 59 kg (130 lb) 04/02/2017 2:31 PM RN CORONARY CARE UNIT Height 152.4 cm (5') 04/02/2017 2:31 PM RN CORONARY CARE UNIT Body Mass Index 25.39 04/02/2017 2:31 PM RN CORONARY CARE UNIT Plan of Treatment Not on file Insurance [facility] Care Teams Senior Java Ui Developer Relationship Specialty Start Date End Date Darius Schuler DO PCP - General 02/24/17
--- OUTSIDE RECORDS SUMMARY | 2025-02-09 08:52 | XMS_ITS | Clinical Summary ---
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
[2025-02-09 13:17] LABS: Iron 63 ug/dL (37-170)
[2025-02-09 13:24] LABS: Alanine Aminotransferase 18 U/L (6-35); Albumin Level 4.4 g/dL (3.5-5.1); Alkaline Phosphatase 75 U/L (38-126); Anion Gap 10 mmol/L (4-12); Aspartate Amino Transferase 42 U/L (14-36); Bilirubin,Total 0.4 mg/dL (0.2-1.3); Blood Urea Nitrogen 18 mg/dL (7-17); Calcium 9.2 mg/dL (8.4-10.2); Carbon Dioxide 26 mmol/L (22-30); Chloride 102 mmol/L (98-107); Cholesterol 203 mg/dL (0-200); Estimated Glomerular Filt Rate > 60; Glucose 92 mg/dL (65-110); HDL Direct 68 mg/dL; Potassium 3.8 mmol/L (3.4-5.0); Sodium 138 mmol/L (137-145); Total Protein 7.9 g/dL (6.3-8.2); Triglycerides 61 mg/dL (<150)
[2025-02-09 13:30] LABS: Percent Iron Saturation 19 % (20-50)
[2025-02-09 14:36] LABS: Vitamin B12 356.0 pg/mL (239-931)
[2025-02-10 10:08] LABS: FSH 14.6 mIU/mL (.)
[2025-02-10 13:50] LABS: CRP 0.5 mg/dL (<1.0)
[2025-02-10 14:19] LABS: Thyroid Stimulating Hormone 2.710 uIU/mL (0.465-4.680)
[2025-02-10 14:22] LABS: Ferritin 26.90 ng/mL (6.24-137)
[2025-02-10 16:08] LABS: ANA by IFA Rfx Titer/Pattern Negative (.)
[2025-02-11 16:08] LABS: Free Testosterone (Direct) 0.5 pg/mL (0.0-4.2)
== END 2025-02-09 08:34 | disposition home or self-care (01) ==
LOC: ANHGOSHLAB 08:34
DX: F51.05 Insomnia due to other mental disorder (principal); Z13.29 Encounter for screening for other suspected endocrine disorder; F99 Mental disorder, not otherwise specified; R53.83 Other fatigue; E55.9 Vitamin D deficiency, unspecified; G25.81 Restless legs syndrome; E78.5 Hyperlipidemia, unspecified; E61.1 Iron deficiency; R60.9 Edema, unspecified; M25.50 Pain in unspecified joint
CPT/HCPCS: 36415; 80053; 80061; 82306; 82607; 82728; 82746; 83001; 83540; 83550; 84402; 84403; 84443; 86038; 86140

== ENCOUNTER 2025-02-11 09:31 | Outpatient (CLI) | payer OTHER, SELFPAY ==
--- OUTSIDE RECORDS SUMMARY | 2025-02-11 10:29 | XMS_ITS | Clinical Summary ---
Author Organization [facility] Address [address] [place] [address] Care Team Providers Care Collection Systems Worker Name Role Phone Darius Schuler DO Primary Care Provider Source Comments [facility],non-owned Affiliates and Associated Physician Practices is amultiple site organization consisting of ambulatory clinics and hospital sitesin [place], [place], [place] and [place]. This disclosure is being madepursuant to the Care Everywhere program and may not contain all information available regarding this patient. Last updated 17.[facility] [employer] Allergies Active Allergy Reactions Criticality Noted Date [...] age to complete [place] [address] [place] [address] CIG[employer] SELF PAY NO INSURANCE Member Subscriber Plan / Payer (Ef fective for All Dates) Name:Maykelchris Jessika Member ID:Not on file Relation to Subscriber:Not on file Name:JESSIKA DILL Subscriber ID:Not on file (Home) Address: [address] [place] [address] [place] [address] Payer ID:Not on file Group ID:Not on file Type:Self Pay Address: [place], [place] Care Teams Collection Systems Worker Relationship Specialty Start Date End Date Darius Schuler DO PCP - General Internal Medicine 06/28/16
--- OUTSIDE RECORDS SUMMARY | 2025-02-11 10:30 | XMS_ITS | Clinical Summary ---
Author Organization [facility] Address [address] [place] [address] Care Team Providers Care Sprue Cutting Press Operator Name Role Phone Darius Schuler DO Primary Care Provider [phone]- [phone] Allergies Active Allergy Reactions Criticality Noted Date [...] disease Mother 2 Lobo nary artery disease; [place] age 58 Relation Name Status Comments Father [...] on file Legal Sex Female 10:19 AM PAPER GLUING OPERATOR Gender Identity Female 07/10/2023 12:43 PM [...] Comments Blood Pressure 112/64 04/02/2017 2:31 PM PAPER GLUING OPERATOR Pulse - - Temperature - - Respiratory Rate - - Oxygen Saturation - - Inhaled Oxygen Concentration - - Weight 59 kg (130 lb) 04/02/2017 2:31 PM PAPER GLUING OPERATOR Height 152.4 cm (5') 04/02/2017 2:31 PM PAPER GLUING OPERATOR Body Mass Index 25.39 04/02/2017 2:31 PM PAPER GLUING OPERATOR Plan of Treatment Not on file Insurance [facility] Care Teams Sprue Cutting Press Operator Relationship Specialty Start Date End Date Darius Schuler DO PCP - General 02/24/17
--- OUTSIDE RECORDS SUMMARY | 2025-02-11 10:30 | XMS_ITS | Clinical Summary ---
Author Organization [facility] Care Team Providers Care Water Team Leader Name Role Phone Unavailable Primary Care Provider Unavailabl e Social History Tobacco Use Types Packs/Day Years Used Date Smoking Tobacco: Never Assessed Comments Unknown Sex and Gender Information Value Date Recorded Sex Assigned at Not on file Legal Sex Female 10:58 AM CALENDER ROLL OPERATOR Gender Identity Not on file Sexual Orientation [...]
[2025-02-11 11:08] LABS: Hematocrit 42.3 % (37.0-47.0); Hemoglobin 13.6 g/dL (12.0-15.0); Immature Granulocyte Percent A 0.2 % (0-0.5); Lymphocytes Absolute Auto 2.69 K/mm3 (0.9-3.2); Mean Corpuscular HGB Conc 32.2 g/dl (32-36); Mean Corpuscular Hemoglobin 28.6 pg (26-34); Mean Corpuscular Volume 88.9 fl (80-100); Nucleated Red Blood Cells Absolute Auto 0.000 K/mm3 (0.0-0.012); Nucleated Red Blood Cells Perc 0.0 % (0.0-0.2); Platelet Count Result 352 k/mm3 (150-375); Red Blood Count 4.76 M/mm3 (4.2-5.4); White Blood Count 6.5 K/mm3 (4.5-10.0)
[2025-02-12 07:09] LABS: LH 6.7 mIU/mL (.)
[2025-02-12 12:08] LABS: Anti-CCP Ab, IgG/IgA 8 units (0-19)
[2025-02-15 10:09] LABS: ANA by IFA Rfx Titer/Pattern Negative (.)
== END 2025-02-11 09:32 | disposition home or self-care (01) ==
LOC: ANHGOSHLAB 09:32
DX: E61.1 Iron deficiency (principal); G25.81 Restless legs syndrome; R53.83 Other fatigue; F51.05 Insomnia due to other mental disorder; F99 Mental disorder, not otherwise specified; R60.9 Edema, unspecified
CPT/HCPCS: 36415; 83002; 85025; 85652; 86038; 86200; 86430